=== PATIENT | male | born 1940 | race Caucasian/White ===

== ENCOUNTER 2017-08-04 14:25 | Emergency (ER) | payer OTHER, MEDICARE ==
[2017-08-04] MEDS ORDERED: LIDOCAINE 1% 20 ML MDV ONE (15:14)
--- NOTE | 2017-08-04 15:44 | EDPHYS ---
Physician Documentation [facility] Name: Forrest Collins Age: 77 yrs Sex: Male : 1940 Arrival Date: 08/04/2017 Time: 14:29 Bed 26 Private MD: Gato Farah ED Physician Jeff Heredia HPI: 08/04 16:00 This 77 yrs old Male presents to ER via Ambulatory with complaints of pm1 Laceration To Arm. 16:00 The patient has a laceration related to: working, occurred at work, and there are no pm1 complicating factors. The laceration(s) is(are) located on the dorsal aspect of left forearm. Onset: The symptoms/episode began/occurred 1 hour(s) ago. Associated signs and symptoms: Pertinent negatives: deformity, heavy bleeding, numbness distal to injury, suspected foreign body. Patient was working with some flashing and it cut his left forearm. patient with recent tetanus immunization < 5 years old. Historical: - Allergies: 14:41 NKA; iw - Home Meds: 14:41 None [Active]; iw - PMHx: 14:41 None; iw - PSHx: 14:41 Hernia repair; iw - Immunization history:: Adult Immunizations Last tetanus immunization: up to date. - Social history:: Smoking status: Patient/guardian denies using tobacco. ROS: 16:00 Constitutional: Negative for fever, chills, and weight loss, Eyes: Negative for injury, pm1 pain, redness, and discharge, ENT: Negative for injury, pain, and discharge, Neck: Negative for injury, pain, and swelling, Cardiovascular: Negative for chest pain, palpitations, and edema, Respiratory: Negative for shortness of breath, cough, wheezing, and pleuritic chest pain, Abdomen/GI: Negative for abdominal pain, nausea, vomiting, diarrhea, and constipation, Back: Negative for injury and pain, MS/Extremity: Negative for injury and deformity. 16:00 Neuro: Negative for headache, weakness, numbness, tingling, and seizure. 16:00 Skin: Positive for laceration(s), of the dorsal aspect of left forearm. Exam: 16:00 Constitutional: This is a well developed, well nourished patient who is awake, alert, pm1 and in no acute distress. Head/Face: Normocephalic, atraumatic. Chest/axilla: Normal chest wall appearance and motion. Nontender with no deformity. No lesions are appreciated. Cardiovascular: Regular rate and rhythm with a normal S1 and S2. No gallops, murmurs, or rubs. Normal PMI, no JVD. No pulse deficits. Respiratory: Lungs have equal breath sounds bilaterally, clear to auscultation and percussion. No rales, rhonchi or wheezes noted. No increased work of breathing, no retractions or nasal flaring. Back: No spinal tenderness. No costovertebral tenderness. Full range of motion. 16:00 Skin: injury, laceration(s), of the dorsal aspect of left forearm. Vital Signs: 14:41 Pulse 69; Resp 16 S; Temp 98.2; Pulse Ox 97% on R/A; Weight 90.26 kg; Height 6 ft. iw (182.88 cm); Pain 0/10; 16:18 BP 135 / 82; Pulse 67; Resp 18; Pulse Ox 100% ; tl3 14:41 Body Mass Index 26.99 (90.26 kg, 182.88 cm) iw Laceration: 15:46 Wound Repair of 3cm ( 1.2in ) subcutaneous laceration to dorsal aspect of left forearm. pm1 Linear shaped.. Distal neuro/vascular/tendon intact. Anesthesia: Local anesthetic administered with 2 mls of 1% lidocaine. Wound prep: Extensive cleansing by me, Wound irrigation by me, Wound explored extensively, Copious irrigation. Skin closed with 5 4-0 Prolene using simple sutures and sterile technique. Dressed with Bacitracin, 4x4's. Patient tolerated well. MDM: 14:36 Patient medically screened. pm1 15:42 Data reviewed: vital signs. Data interpreted: Pulse oximetry: on room air is 97 %. pm1 Interpretation: normal. Counseling: I had a detailed discussion with the patient and/or guardian regarding: the historical points, exam findings, and any diagnostic results supporting the discharge/admit diagnosis, the need for outpatient follow up, to return to the emergency department if symptoms worsen or persist or if there are any questions or concerns that arise at home. 08/04 14:50 Order name: Prolene, Sutures; Complete Time: 14:56 pm1 08/04 14:50 Order name: Dressing - Wound; Complete Time: 14:56 pm1 08/04 14:50 Order name: Gloves, Sterile; Complete Time: 14:56 pm1 08/04 14:50 Order name: Setup Suture Tray; Complete Time: 14:56 pm1 Administered Medications: No medications were administered Disposition: 08/05 10:24 Co-signature as Attending Physician, Jeff Heredia MD I agree with the assessment and sujey plan of care. Disposition: 08/04/17 15:44 Discharged to Home. Impression: Laceration without foreign body of left forearm. - Condition is Stable. - Discharge Instructions: Laceration Care, Adult. - Prescriptions for Keflex 500 mg Oral Capsule - take 1 capsule by ORAL route every 12 hours for 10 days; 20 capsule. - Medication Reconciliation Form, Thank You Letter, Antibiotic Education form. - Follow up: Emergency Department; When: 2 - 3 days; Reason: Recheck today's complaints, Continuance of care, Re-evaluation by your physician. Follow up: Gato Farah MD; When: 7 - 10 days; Reason: Wound Recheck, Recheck today's complaints, Continuance of care, Staple/Suture removal, Re-evaluation by your physician. - Problem is new. - Symptoms have improved. Signatures: Jeff Heredia MD MD cha Williams, Irene, RN Lance Zee NP [employer]ESPERSON [employer] pm1 Violetta Blackwell, JOANA RN tl3
--- NOTE | 2017-08-04 15:44 | ER ---
Nurse's Notes [facility] Name: Forrest Collins Age: 77 yrs Sex: Male : 1940 Arrival Date: 08/04/2017 Time: 14:29 Bed 26 Private MD: Gato Farah Diagnosis: Laceration without foreign body of left forearm Presentation: 08/04 14:37 Presenting complaint: Patient states: was moving sheet iron and got caught on LFA, has iw small laceration to LFA, dressed and not bleeding at this time. Transition of care: patient was not received from another setting of care. Complicating Factors: There are no complicating factors for this patient. Onset of symptoms was August 04, 2017. Care prior to arrival: Bleeding of injury controlled. 14:37 Method Of Arrival: Ambulatory iw 14:37 Acuity: TIAGO 4 iw Historical: - Allergies: 14:41 NKA; iw - Home Meds: 14:41 None [Active]; iw - PMHx: 14:41 None; iw - PSHx: 14:41 Hernia repair; iw - Immunization history:: Adult Immunizations Last tetanus immunization: up to date. - Social history:: Smoking status: Patient/guardian denies using tobacco. Screenin:47 Abuse screen: Denies threats or abuse. Nutritional screening: No deficits noted. tl3 Tuberculosis screening: No symptoms or risk factors identified. Fall Risk None identified. Assessment: 14:47 General: Appears in no apparent distress. comfortable, slender, well groomed, well tl3 developed, well nourished, Behavior is calm, cooperative, appropriate for age. Pain: Complains of pain in dorsal aspect of left forearm. Neuro: Level of Consciousness is awake, alert, obeys commands, confused, Oriented to person, place, time, situation, Appropriate for age. Cardiovascular: Reports None Heart tones S1 S2 present Capillary refill < 3 seconds in bilateral fingers. Respiratory: Airway is patent Trachea midline Respiratory effort is even, unlabored, Respiratory pattern is regular, symmetrical, Breath sounds are clear bilaterally. GI: No signs and/or symptoms were reported involving the gastrointestinal system. : No signs and/or symptoms were reported regarding the genitourinary system. EENT: No signs and/or symptoms were reported regarding the EENT system. Derm: Skin is fragile, Bruising that is dark purple, on multiple sites. Musculoskeletal: No deficits noted. Injury Description: Laceration sustained to dorsal aspect of left forearm is clean, 0.5 to 2.5 cm long, not bleeding. 15:25 Reassessment: Patient appears in no apparent distress at this time. No changes from tl3 previously documented assessment. Patient and/or family updated on plan of care and expected duration. Pain level reassessed. Patient is alert, oriented x 3, equal unlabored respirations, skin warm/dry/pink. kathryn at bedside suturing. 16:18 Reassessment: Patient appears in no apparent distress at this time. No changes from tl3 previously documented assessment. Patient and/or family updated on plan of care and expected duration. Pain level reassessed. Patient is alert, oriented x 3, equal unlabored respirations, skin warm/dry/pink. wound dressed and discharge papers signed. Vital Signs: 14:41 Pulse 69; Resp 16 S; Temp 98.2; Pulse Ox 97% on R/A; Weight 90.26 kg; Height 6 ft. iw (182.88 cm); Pain 0/10; 16:18 BP 135 / 82; Pulse 67; Resp 18; Pulse Ox 100% ; tl3 14:41 Body Mass Index 26.99 (90.26 kg, 182.88 cm) iw ED Course: 14:29 Patient arrived in ED. mr 14:29 Gato Farah MD is Private Physician. mr 14:36 Kathryn Nicholson NP is PHCP. pm1 14:36 Jeff Heredia MD is Attending Physician. pm1 14:40 Triage completed. iw 14:41 Arm band placed on. iw 14:47 Violetta Blackwell, JOANA is Primary Nurse. tl3 14:47 Patient has correct armband on for positive identification. pt sitting in chair. tl3 14:47 No provider procedures requiring assistance completed. tl3 15:43 Gato Farah MD is Referral Physician. pm1 16:18 Patient did not have IV access during this emergency room visit. tl3 Administered Medications: No medications were administered Outcome: 15:44 Discharge ordered by . pm1 16:18 Discharged to home ambulatory. tl3 16:18 Condition: good 16:18 Discharge instructions given to patient, Instructed on discharge instructions, follow up and referral plans. medication usage, Demonstrated understanding of instructions, follow-up care, medications, wound care, Prescriptions given X 1. 16:19 Patient left the ED. tl3 Signatures: Antonieta Galaviz Irene, RN RN iw Kathryn Nicholson, [employer]IRED TEACHER pm1 Violetta Blackwell RN RN tl3
== END 2017-08-04 16:19 | disposition home or self-care (01) ==
LOC: ER 14:25
PROC: 0JQH0ZZ Repair Left Lower Arm Subcutaneous Tissue and Fascia, Open Approach (ICD-10-PCS; principal; 2017-08-04)
DX: S51.812A Laceration without foreign body of left forearm, initial encounter (principal); W26.8XXA Contact with other sharp object(s), not elsewhere classified, initial encounter; Y93.89 Activity, other specified; Y92.89 Other specified places as the place of occurrence of the external cause; Y99.0 Civilian activity done for income or pay
CPT/HCPCS: 99282

== ENCOUNTER 2017-12-26 07:28 | Day surgery (SDC) | payer OTHER, MEDICARE ==
[2017-12-26] MEDS ORDERED: PHENYLEPHRINE 10% OPTH 5ML OPTH ONE ×3 (07:40→07:50)
[2017-12-26] MEDS ORDERED: TETRACAINE HCL 0.5% 2ML OPTH ONE (07:40)
[2017-12-26] MEDS ORDERED: BUPIVACAINE 0.25% PF 10 ML VIAL ONE (07:40)
[2017-12-26] MEDS ORDERED: CYCLOPENTOLATE 1% OPTH 2 ML ONE (07:40)
[2017-12-26] MEDS ORDERED: CYCLOPENTOLATE 1% OPTH 2 ML OPTH ONE ×3 (07:40→07:50)
[2017-12-26] MEDS ORDERED: PHENYLEPHRINE 10% OPTH 5ML ONE (07:41)
[2017-12-26] MEDS ORDERED: NA CHLORIDE 0.9% 500 ML ONE (07:41)
[2017-12-26] MEDS ORDERED: LIDOCAINE 1% MPF 5 ML VIAL ONE (07:42)
[2017-12-26] MEDS ORDERED: DUOVISC 1 KIT OPTH ONE (08:05)
[2017-12-26] MEDS ORDERED: NS 0.9% VIAL 10 ML ONE (08:05)
[2017-12-26] MEDS ORDERED: EPINEPHRINE/PF 1 MG/ML AMP ONE (08:05)
[2017-12-26] MEDS ORDERED: BALANCED SALT IRRIG PLAIN 500 ML BTL IRR ONE (08:05)
[2017-12-26] MEDS ORDERED: MOXIFLOXACIN HCL 10 DROPS/ML **OR USE OPTH ONE (08:06)
[2017-12-26] MEDS ORDERED: LIDOCAINE 1% MPF 2 ML AMPULE ONE (08:06)
[2017-12-26] MEDS ORDERED: LIDOCAINE 2% INJ, MPF 2 ML 0 ML ONE (08:15)
[2017-12-26] MEDS ORDERED: LIDOCAINE HCL/PF 3.5% OPTH GEL ONE (08:18)
[2017-12-26] MEDS ORDERED: LIDOCAINE HCL/PF 3.5% OPTH GEL OPTH ONE (08:20)
[2017-12-26] MEDS ORDERED: FENTANYL CITR 100 MCG/2 ML ONE (08:44)
[2017-12-26] MEDS ORDERED: MIDAZOLAM HCL 2 MG/2 ML INJ ONE (08:44)
--- NOTE | 2017-12-26 09:57 | P.BOP ---
Preoperative diagnosis: Nuclear sclerotic cataract and regular astigmatism OD Postoperative diagnosis: Same Primary procedure: Phacoemulsification with IOL OD and limbal relaxing incision OD Estimated blood loss: None Anesthesia: Local (Topical with anesthesia for cataract surgery) Complications: None Implants: ZCB00 +22.0 Transferred to: Other (Day surgery) Condition: Good
--- NOTE | 2017-12-26 21:19 | OP ---
Date of Procedure: 12/26/2017 Surgeon: Carolina Figueroa MD Anesthesiologist: 1. Kaur Hua CRNA. 2. Kevin Hdz M.D. Preoperative Diagnosis: Nuclear sclerotic cataract, right eye; posterior subcapsular cataract, right eye. Operation Performed: Phacoemulsification with intraocular lens implant, right eye. Anesthesia: Per cataract surgery. Complications: None. Description Of Procedure: In the operating room the patient was prepped and draped in the usual sterile fashion for ophthalmic surgery. A lid speculum was placed in the right eye. Two paracentesis sites were made superiorly and inferiorly in the limbal cornea. Viscoat was placed in the anterior chamber and a crescent blade was used to make a corneal groove and tunnel, and a keratome was used to enter the anterior chamber. Provisc was placed in the anterior chamber and a 360 degree capsulotomy was performed with a cystitome. The lens was hydrodissected with BSS and rotated freely. The lens was removed with a stop and chop technique. 9.01 phaco CDE was used to remove the lens. Residual cortex was removed with the irrigation and aspiration. Provisc was placed in the capsular bag. A ZCB00 +22.0 lens was placed in the capsular bag without complications. Irrigation and aspiration was used to remove residual viscoelastic. The paracentesis sites were hydrated with BSS. The wound and paracentesis sites were inspected and found to be watertight. Vigamox 0.07 cc was placed intracamerally at the end of the procedure. The eye was irrigated with balanced salt solution. The eye was patched with a soft cotton patch and Roberts metal shield. The patient was returned to day surgery in good condition. Comments: A limbal relaxing incision was created at 19 degrees, a 35-degree arc was created with a 600 micron blade. Akten was placed in the eye in Day surgery and irrigated out the eye with BSS in the OR. Preservative-free 1% lidocaine was placed in the anterior chamber prior to Viscoat. During phacoemulsification, the conjunctiva began ballooning and was incised with Reyes scissors. This was reapproximated with cautery at the end of the procedure. Trace residual PSC remained at the end of the procedure. Discharge Instructions: Mr. Collins is discharged to home in good condition and is to follow up with Dr. Figueroa in the morning. ROGER/MARIAN Voice ID: [id number] Report ID: [id number] MOISES
== END 2017-12-26 10:24 | disposition home or self-care (01) ==
LOC: OR 07:28
PROVIDERS: ATTEND Ophthalmology Retina Specialist
PROC: 089 Eye, Drainage (ICD-10-PCS; 2017-12-26)
PROC: 08RJ3JZ Replacement of Right Lens with Synthetic Substitute, Percutaneous Approach (ICD-10-PCS; principal; 2017-12-26 09:10)
DX: H25.11 Age-related nuclear cataract, right eye (principal); H25.041 Posterior subcapsular polar age-related cataract, right eye; H52.221 Regular astigmatism, right eye; E78.5 Hyperlipidemia, unspecified; Z87.891 Personal history of nicotine dependence
CPT/HCPCS: 66984; 66999; J0171; J2001; J2250; J3010; J3490

== ENCOUNTER 2019-05-10 12:16 | Emergency (ER) | payer MEDICARE, OTHER ==
--- OUTSIDE RECORDS SUMMARY | 2019-05-10 12:17 | XMS REPORT ---
:1940 [facility] Address [address] [place] [address] Care Team Providers Name Role Phone Unavailable Unavailable Unavailable Payers Payer Name Policy Type Policy Number Effective Date Expiration Date Problems This patient has no known problems. Allergies, Adverse Reactions, Alerts Allergy Allergy Status Severity Reaction(s) Onset Inactive Treating Comments Name Type Date Date Clinician No Known DA Active U 2019-04 Allergies - 00:00:0 0 No Known DA Active U 2019-03 Allergies - 00:00:0 0 Medications This patient has no known medications. Results Test Description Test Time Test Comments Text Results Atomic Results Result Comments HGB HCT 2019-04-28 07:36:00 Test Item Value Reference Range Comments HEMOGLOBIN (test code=HGB) 12.5 g/dL 12-16 HEMATOCRIT (test code=HCT) 35.7 % 37-47 AB HIV 1 21:54:00 Test Item Value Reference Range Comments AB HIV 1 2 (test NONREACTIVE NONREACTIVE Done by Siemens Zappliaur 4th code=[id number]) Gen HIV Ag/Ab Combo Screen AB HIV 21:54:00 Test Item Value Reference Range Comments AB HIV 1 (test code=HIV1AB) NONREACTIVE NONREACTIVE Done by Siemens Centaur 4th Gen HIV Ag/Ab Combo Screen PROTHROMBIN [id number] 17:03:00 Test Item Value Reference Range Comments PROTHROMBIN TIME PATIENT 10.9 secs 10.1-12.5 (test code=PTP) INTERNATIONAL NORMAL RATIO 0.97 <2.0 RECOMMENDED THERAPEUTIC RANGE (test code=INR) FOR ORAL ANTICOAGULANTTREATMENT: CONDITION INRProphylaxis of venous thrombosis in 2.0 - 3.0 high-risk medical or surgical patientsTreatment of venous thrombosis 2.0 - 3.0Prevention of embolism 2.0 - 3.0Prevention of recurrent embolism, or 3.0 - 4.5 patients with mechanical prosthetic intravascular valves IS PATIENT ON ANTICOAGULANTS ? NHas Lab been notified if Patient is on Heparin Drip? NOIf Yes, orderCBC, OCCULT BLOOD, PT every other day NTHROMBOPLASTIN TIME [id number] 17:03:00 Test Item Value Reference Range Comments PTT ACTIVATED (test code=APTT) 30.6 secs 24.9-37.0 IS PATIENT ON ANTICOAGULANTS ? NHas Lab been notified if Patient is on Heparin Drip? NOIf Yes, orderCBC, OCCULT BLOOD, PT every other day NCOMPREHENSIVE METABOLIC [id number] 17:02:00 Test Item Value Reference Range Comments SODIUM (test code=NA) 140 mmol/L 136-145 POTASSIUM (test code=K) 4.0 mmol/L 3.5-5.1 CHLORIDE (test code=CL) 101.0 mmol/L 98-107 CARBON DIOXIDE (test code=CO2) 26.4 mmol/L 21-32 GLUCOSE (test code=GLU) 100 mg/dL 70-110 BLOOD UREA NITROGEN (test 21 mg/dL 7-18 code=BUN) GLOMERULAR FILTRATION RATE 79.0 >60 Unit of measure: (test code=GFR) mL/min/1.73 [id number] Range:Healthy Adults >90 mL/min/1.73 m2 For Chronic Kidney Disease: Stage II Mild Decrease in GFR 60-90 Stage III Moderate Decrease in GFR 30-59 Stage IV Severe Decrease in GFR 15-29 Stage V Kidney Failure <15 CREATININE (test code=CREAT) 0.92 mg/dL 0.55-1.30 TOTAL PROTEIN (test code=PROT) 7.4 g/dL 6.4-8.2 ALBUMIN (test code=ALB) 4.1 g/dL 3.4-5.0 GLOBULIN (test code=GLOB) 3.3 g/dL 2.2-4.2 ALBUMIN/GLOBULIN RATIO (test 1.2 0.7-2.0 code=A/G) CALCIUM (test code=CA) 9.2 mg/dL 8.2-10.1 BILIRUBIN TOTAL (test 0.82 mg/dL 0.2-1.00 code=BILT) SGOT/AST (test code=AST) 25.0 U/L 15-37 SGPT/ALT (test code=ALT) 31.0 U/L 12-78 Please note new normal range. ALKALINE PHOSPHATASE TOTAL 67 U/L 46-116 (test code=ALKP) CBC W/AUTO [id number] 16:21:00 Test Item Value Reference Range Comments WHITE BLOOD CELL (test code=WBC) 4.6 K/mm3 5.7-10.5 RED BLOOD CELL (test code=RBC) 4.65 M/mm3 4.2-5.4 HEMOGLOBIN (test code=HGB) 14.9 g/dL 12-16 HEMATOCRIT (test code=HCT) 42.0 % 37-47 MEAN CELL VOLUME (test code=MCV) 90 fL 80-98 MEAN CELL HGB (test code=MCH) 32.0 pg 27-34 MEAN CELL HGB CONCENTRATION (test code=MCHC) 35.5 g/dL 30.8-34.1 RED CELL DISTRIBUTION WIDTH (test code=RDW) 13.3 % 11-16 PLT (test code=PLT) 165 K/mm3 130-400 MEAN PLATELET VOLUME (test code=MPV) 12.0 fL 8.9-12.1 NEUTROPHIL % (test code=NT%) 64.3 % 45-70 LYMPHOCYTE % (test code=LY%) 25.1 % 20-40 MONOCYTE % (test code=MO%) 7.8 % 3-10 EOSINOPHIL % (test code=EO%) 1.5 % 1-5 BASOPHIL % (test code=BA%) 0.9 % 0.0-1.1 NEUTROPHIL # (test code=NT#) 2.95 K/mm3 2.00-7.50 LYMPHOCYTE # (test code=LY#) 1.15 K/mm3 1.50-4.00 MONOCYTE # (test code=MO#) 0.36 K/mm3 0.2-0.8 EOSINOPHIL # (test code=EO#) 0.07 K/mm3 0.04-0.4 BASOPHIL # (test code=BA#) 0.04 K/mm3 0.02-0.10 MANUAL DIFF REQUIRED (test code=MDIFF) NO MANUAL DIFF NUCLEATED RED BLOOD CELL (test code=NRBC) 0 % 0-0
[2019-05-10 13:04] LABS: Urine Blood NEGATIVE (NEG); Urine Glucose NEGATIVE (NEG); Urine Protein NEGATIVE (NEG); Urine pH 5.5 (5.0-7.0)
--- NOTE | 2019-05-10 13:11 | EDPHYS ---
Physician Documentation [facility] Name: Forrest Collins Age: 79 yrs Sex: Male : 1940 Arrival Date: 05/10/2019 Time: 12:21 Bed 14 Private MD: Gato Farah ED Physician Jeff Heredia HPI: 05/10 13:05 This 79 yrs old Male presents to ER via Ambulatory with complaints of Urinary sujey Retention. 13:05 The patient presents with urinary symptoms, dysuria, frequency, hesitancy. Onset: The sujey symptoms/episode began/occurred 2 day(s) ago. Modifying factors: The symptoms are alleviated by nothing, the symptoms are aggravated by urinating. Associated signs and symptoms: The patient has no apparent associated signs or symptoms. Severity of symptoms: At their worst the symptoms were mild, moderate, in the emergency department the symptoms are unchanged. The patient is not sexually active. The patient has not experienced similar symptoms in the past. Historical: - Allergies: 12:43 NKA; sg - PMHx: 12:43 Hypertension; sg - PSHx: 12:43 Hernia repair; Right knee sx; cataract sx; sg - Immunization history:: Adult Immunizations unknown. - Social history:: Smoking status: Patient/guardian denies using tobacco. - Ebola Screening: : No symptoms or risks identified at this time. ROS: 13:07 Constitutional: Negative for fever, chills, and weight loss, Eyes: Negative for injury, sujey pain, redness, and discharge, ENT: Negative for injury, pain, and discharge, Neck: Negative for injury, pain, and swelling, Cardiovascular: Negative for chest pain, palpitations, and edema, Respiratory: Negative for shortness of breath, cough, wheezing, and pleuritic chest pain, Back: Negative for injury and pain, : Negative for injury, bleeding, discharge, and swelling, MS/Extremity: Negative for injury and deformity, Skin: Negative for injury, rash, and discoloration, Neuro: Negative for headache, weakness, numbness, tingling, and seizure, Psych: Negative for depression, anxiety, suicide ideation, homicidal ideation, and hallucinations, Allergy/Immunology: Negative for hives, rash, and allergies, Endocrine: Negative for neck swelling, polydipsia, polyuria, polyphagia, and marked weight changes, Hematologic/Lymphatic: Negative for swollen nodes, abnormal bleeding, and unusual bruising. 13:07 Abdomen/GI: Positive for abdominal pain, of the suprapubic area. Exam: 13:07 Constitutional: This is a well developed, well nourished patient who is awake, alert, sujey and in no acute distress. Head/Face: Normocephalic, atraumatic. Eyes: Pupils equal round and reactive to light, extra-ocular motions intact. Lids and lashes normal. Conjunctiva and sclera are non-icteric and not injected. Cornea within normal limits. Periorbital areas with no swelling, redness, or edema. ENT: Nares patent. No nasal discharge, no septal abnormalities noted. Tympanic membranes are normal and external auditory canals are clear. Oropharynx with no redness, swelling, or masses, exudates, or evidence of obstruction, uvula midline. Mucous membranes moist. Neck: Trachea midline, no thyromegaly or masses palpated, and no cervical lymphadenopathy. Supple, full range of motion without nuchal rigidity, or vertebral point tenderness. No Meningismus. Chest/axilla: Normal chest wall appearance and motion. Nontender with no deformity. No lesions are appreciated. Cardiovascular: Regular rate and rhythm with a normal S1 and S2. No gallops, murmurs, or rubs. Normal PMI, no JVD. No pulse deficits. Respiratory: Lungs have equal breath sounds bilaterally, clear to auscultation and percussion. No rales, rhonchi or wheezes noted. No increased work of breathing, no retractions or nasal flaring. Abdomen/GI: Soft, non-tender, with normal bowel sounds. No distension or tympany. No guarding or rebound. No evidence of tenderness throughout. Back: No spinal tenderness. No costovertebral tenderness. Full range of motion. Skin: Warm, dry with normal turgor. Normal color with no rashes, no lesions, and no evidence of cellulitis. MS/ Extremity: Pulses equal, no cyanosis. Neurovascular intact. Full, normal range of motion. Neuro: Awake and alert, GCS 15, oriented to person, place, time, and situation. Cranial nerves II-XII grossly intact. Motor strength 5/5 in all extremities. Sensory grossly intact. Cerebellar exam normal. Normal gait. Psych: Awake, alert, with orientation to person, place and time. Behavior, mood, and affect are within normal limits. 13:07 : CVA tenderness, is absent, Male external genitalia: normal, Bladder: distension, that is mild, tenderness, that is mild. Vital Signs: 12:41 BP 141 / 87; Pulse 107; Resp 18; Temp 97.7; Pulse Ox 100% on R/A; Weight 88.45 kg (R); sg Height 5 ft. 11 in. (180.34 cm); 14:20 BP 131 / 72; Pulse 87; Resp 18; Temp 98.0; Pulse Ox 99% on R/A; ph 12:41 Body Mass Index 27.20 (88.45 kg, 180.34 cm) sg MDM: 12:54 Patient medically screened. [facility] 13:07 Data reviewed: vital signs, nurses notes, lab test result(s), urinalysis. [facility] 05/10 12:56 Order name: Urine Dipstick--Ancillary (enter results); Complete Time: 13:06 05/10 13:04 Order name: Urine Culture [facility] 05/10 13:04 Order name: Bladder Scanner; Complete Time: 13:19 [facility] 05/10 13:07 Order name: Nam; Complete Time: 14:21 [facility] 05/10 13:07 Order name: Nam Leg Bag; Complete Time: 14:21 [facility] Administered Medications: 14:00 Drug: Flomax 0.4 mg Route: PO; ph 14:21 Follow up: Response: No adverse reaction ph 14:00 Drug: Cipro 500 mg Route: PO; ph 14:22 Follow up: Response: No adverse reaction ph 14:10 Drug: Viscous Lidocaine Liquid (4 %) 5 ml Route: Mucous Membrane; ph 14:23 Follow up: Response: No adverse reaction ph Disposition: 05/10/19 13:10 Discharged to Home. Impression: Retention of urine. - Condition is Stable. - Discharge Instructions: Nam Catheter Care, Adult, Acute Urinary Retention, Male, [id number], Nam Catheter Care, Adult, [id number]. - Prescriptions for Cipro 250 mg Oral Tablet - take 1 tablet by ORAL route every 12 hours; 14 tablet. Flomax 0.4 mg Oral Capsule, Sust. Release 24 hr - take 1 capsule by ORAL route once daily 1/2 hour following the same meal each day; 30 capsule. - Medication Reconciliation Form, Thank You Letter, Antibiotic Education, Prescription Opioid Use form. - Follow up: Gato Farah MD; When: 2 - 3 days; Reason: Recheck today's complaints, Continuance of care, Re-evaluation by your physician. Follow up: Mariano James MD; When: 2 - 3 days; Reason: Recheck today's complaints, Re-evaluation by your physician. - Problem is new. - Symptoms have improved. Signatures: Dispatcher [employer] EDMS Anson Monterroso RN RN Jeff Pineda MD MD cha Hall, Patricia, RN RN ph Corrections: (The following items were deleted from the chart) 14:24 13:10 05/10/2019 13:10 Discharged to Home. Impression: Retention of urine. Condition is ph Stable. Forms are Medication Reconciliation Form, Thank You Letter, Antibiotic Education, Prescription Opioid Use. Follow up: Gato Farah; When: 2 - 3 days; Reason: Recheck today's complaints, Continuance of care, Re-evaluation by your physician. Follow up: Mariano James; When: 2 - 3 days; Reason: Recheck today's complaints, Re-evaluation by your physician. Problem is new. Symptoms have improved. sujey
--- NOTE | 2019-05-10 13:11 | ER ---
Nurse's Notes [facility] Name: Forrest Collins Age: 79 yrs Sex: Male : 1940 Arrival Date: 05/10/2019 Time: 12:21 Bed 14 Private MD: Gato Farah Diagnosis: Retention of urine Presentation: 05/10 12:44 Presenting complaint: Patient states: pt reports having difficulty voiding for 1 day, sg pt states he is post op right knee replacement and has medications that have a diuretic effect and is concerned because he is not emptying his bladder that it could be a problem. Transition of care: patient was not received from another setting of care. Onset of symptoms was May 10, 2019. Risk Assessment: Do you want to hurt yourself or someone else? Patient reports no desire to harm self or others. Initial Sepsis Screen: Does the patient meet any 2 criteria? HR > 90 bpm. Does the patient have a suspected source of infection? No. Patient's initial sepsis screen is negative. Care prior to arrival: None. 12:44 Method Of Arrival: Ambulatory sg 12:44 Acuity: TIAGO 3 sg Historical: - Allergies: 12:43 NKA; sg - PMHx: 12:43 Hypertension; sg - PSHx: 12:43 Hernia repair; Right knee sx; cataract sx; sg - Immunization history:: Adult Immunizations unknown. - Social history:: Smoking status: Patient/guardian denies using tobacco. - Ebola Screening: : No symptoms or risks identified at this time. Screenin:30 Abuse screen: Denies threats or abuse. Denies injuries from another. Nutritional ph screening: No deficits noted. Tuberculosis screening: No symptoms or risk factors identified. Fall Risk None identified. Assessment: 13:30 General: Appears in no apparent distress. uncomfortable, slender, well groomed, ph Behavior is calm, cooperative, appropriate for age. Pain: Complains of pain in suprapubic area. Neuro: Level of Consciousness is awake, alert, obeys commands, Oriented to person, place, time, situation. Cardiovascular: Capillary refill < 3 seconds in bilateral fingers Patient's skin is warm and dry. Respiratory: Airway is patent Respiratory effort is even, unlabored. : Reports inability to void, since this morning. Derm: Skin is intact, is healthy with good turgor, Skin is pink, warm \T\ dry. Musculoskeletal: Circulation, motion, and sensation intact. Range of motion: intact in all extremities. 14:15 Reassessment: Patient appears in no apparent distress at this time. Patient and/or ph family updated on plan of care and expected duration. Pain level reassessed. Patient is alert, oriented x 3, equal unlabored respirations, skin warm/dry/pink. Nam carheter in place, 950 mL urine output noted, pt reports relief in suprapubic pressure, leg bag placed to L leg. Vital Signs: 12:41 BP 141 / 87; Pulse 107; Resp 18; Temp 97.7; Pulse Ox 100% on R/A; Weight 88.45 kg (R); sg Height 5 ft. 11 in. (180.34 cm); 14:20 BP 131 / 72; Pulse 87; Resp 18; Temp 98.0; Pulse Ox 99% on R/A; ph 12:41 Body Mass Index 27.20 (88.45 kg, 180.34 cm) ED Course: 12:21 Patient arrived in ED. am2 12:21 Gato Farah MD is Private Physician. am2 12:43 Arm band placed on. 12:46 Triage completed. 12:54 Jeff Heredia MD is Attending Physician. [facility] 12:58 Patient has correct armband on for positive identification. Bed in low position. Call [facility] light in reach. Side rails up X 1. Adult w/ patient. Pulse ox on. NIBP on. 12:58 Bladder scan completed. 342. 5 12:59 Urine Dipstick--Ancillary (enter results) Sent. [facility] 13:10 Gato Farah MD is Referral Physician. sujey 13:10 Mariano James MD is Referral Physician. sujey 13:23 Kadie Ambrosio, JOANA is Primary Nurse. ph 14:00 Nam cath inserted, using sterile technique, 16 Fr., by sc, balloon inflated, to ph gravity drainage, returned clear yellow urine. Patient tolerated poorly. 900 mL drained from bladder. 14:20 No provider procedures requiring assistance completed. Patient did not have IV access ph during this emergency room visit. Administered Medications: 14:00 Drug: Flomax 0.4 mg Route: PO; ph 14:21 Follow up: Response: No adverse reaction ph 14:00 Drug: Cipro 500 mg Route: PO; ph 14:22 Follow up: Response: No adverse reaction ph 14:10 Drug: Viscous Lidocaine Liquid (4 %) 5 ml Route: Mucous Membrane; ph 14:23 Follow up: Response: No adverse reaction ph Outcome: 13:10 Discharge ordered by MD. rm 14:24 Patient left the ED. ph 14:24 Discharged to home ambulatory, with significant other. ph 14:24 Condition: improved 14:24 Discharge instructions given to patient, significant other, Instructed on discharge instructions, follow up and referral plans. medication usage, Nam care Demonstrated understanding of instructions, follow-up care, medications, Prescriptions given X 2. Signatures: Anson Monterroso RN RN sg Anderson, Corey, MD MD cha Hall, Patricia, RN RN ph Martinez, Maria [facility] Hortensia [facility] Corrections: (The following items were deleted from the chart) 12:46 12:44 Initial Sepsis Screen: Does the patient meet any 2 criteria? HR > 90 bpm. Does sg the patient have a suspected source of infection? Yes: Dysuria/Frequency/Urgency/UTI sg
[2019-05-10] MEDS ORDERED: TAMSULOSIN 0.4 MG SR CAP ONE (13:39)
[2019-05-10] MEDS ORDERED: LIDOCAINE VISCOUS 2% SOLN 15 ML UDC ONE ×2 (13:39→13:51)
[2019-05-10] MEDS ORDERED: CIPROFLOXACIN HCL 500 MG TAB ONE (13:39)
[2019-05-10 14:50] VITALS: BP 141/87; TEMP 97.7; O2SAT 100
== END 2019-05-10 14:24 | disposition home or self-care (01) ==
LOC: ER 12:16
DX: R33.9 Retention of urine, unspecified (principal); I10 Essential (primary) hypertension
CPT/HCPCS: 51702; 81003; 87086; 87088; 99284

== ENCOUNTER 2019-05-12 11:20 | Emergency (ER) | payer OTHER ==
--- OUTSIDE RECORDS SUMMARY | 2019-05-12 11:23 | XMS REPORT ---
:1940 [facility] Address [address] [place] [address] Care Team Providers Name Role Phone Unavailable [...] (test code=HCT) 35.7 % 37-47 AB HIV 21:54:00 Test Item Value Reference Range Comments AB HIV 1 (test code=HIV1AB) NONREACTIVE NONREACTIVE Done by [email or web address] 4th Gen HIV Ag/Ab Combo Screen AB HIV 1 21:54:00 Test Item Value Reference Range Comments AB HIV 1 2 (test NONREACTIVE NONREACTIVE Done by [email or web address] 4th code=WOX60JL) Gen HIV Ag/Ab Combo Screen PROTHROMBIN [id number] 17:03:00 Test Item Value Reference Range Comments [...] BLOOD, PT every other day NTHROMBOPLASTIN TIME [id number] 17:03:00 Test Item Value Reference Range Comments PTT ACTIVATED (test code=APTT) 30.6 secs 24.9-37.0 IS PATIENT ON ANTICOAGULANTS ? NHas Lab been notified if Patient is on Heparin Drip? NOIf Yes, orderCBC, OCCULT BLOOD, PT every other day NCOMPREHENSIVE METABOLIC [id number] 17:02:00 Test Item Value Reference Range Comments SODIUM (test code=NA) 140 mmol/L 136-145 POTASSIUM (test code=K) 4.0 mmol/L 3.5-5.1 CHLORIDE (test code=CL) 101.0 mmol/L 98-107 CARBON DIOXIDE (test code=CO2) 26.4 mmol/L 21-32 GLUCOSE (test code=GLU) 100 mg/dL 70-110 BLOOD UREA NITROGEN (test 21 mg/dL 7-18 code=BUN) GLOMERULAR FILTRATION RATE 79.0 >60 Unit of measure: (test code=GFR) mL/min/1.73 [id number] Range:Healthy Adults >90 mL/min/1.73 m2 For Chronic [...] 67 U/L 46-116 (test code=ALKP) CBC W/AUTO [id number] 16:21:00 Test Item Value Reference Range Comments [...]
--- NOTE | 2019-05-12 11:47 | ER ---
Nurse's Notes [facility] Name: Forrest Collins Age: 79 yrs Sex: Male : 1940 Arrival Date: 05/12/2019 Time: : Bed 14 Private MD: Gato Farah Diagnosis: Urinary retention Presentation: 05/12 11:25 Presenting complaint: Patient states: needs urinary catheter removed that was placed sv here. Transition of care: patient was not received from another setting of care. Onset of symptoms was May 12, 2019. Care prior to arrival: None. 11:25 Method Of Arrival: Ambulatory sv 11:25 Acuity: TIAGO 4 sv Historical: - Allergies: : NKA; sv - PMHx: 11: Hypertension; sv - PSHx: 11: Hernia repair; Right knee sx; cataract sx; sv - Family history:: not pertinent. - Hospitalizations: : No recent hospitalization is reported. Vital Signs: 11: BP 131 / 79; Pulse 98; Resp 16; Pulse Ox 98% ; Weight 87.54 kg; Height 5 ft. 11 in. sv (180.34 cm); 11: Body Mass Index 26.92 (87.54 kg, 180.34 cm) sv ED Course: :23 Patient arrived in ED. as 11:23 Gato Farah MD is Private Physician. as 11: Triage completed. sv 11:27 Kamlesh Godwin MD is Attending Physician. rn 11:27 Anson Monterroso RN is Primary Nurse. sg 11:27 Arm band placed on. sv 11:46 Mariano James MD is Referral Physician. rn Administered Medications: No medications were administered Outcome: 11:47 Discharge ordered by MD. rn 11:52 Medical screen evaluation completed per provider. Patient declined treatment. sg 11:52 Condition: good 11:52 Instructed on follow up and referral plans. 12:00 Patient left the ED. sg Signatures: Airam Vargas RN RN sv Anson Monterroso RN RN sg Rosemary Britt as Kamlesh Godwin MD MD rn
--- NOTE | 2019-05-12 11:47 | EDPHYS ---
Physician Documentation [facility] Name: Forrest Collins Age: 79 yrs Sex: Male : 1940 Arrival Date: 05/12/2019 Time: 11:23 Bed 14 Private MD: Gato Farah ED Physician Kamlesh Godwin HPI: 05/12 11:42 This 79 yrs old Male presents to ER via Ambulatory with complaints of needs rn olsen catheter pulled out. 11:42 The patient presents with urinary symptoms. Onset: The symptoms/episode began/occurred rn 2 day(s) ago. Modifying factors: The symptoms are alleviated by nothing, the symptoms are aggravated by nothing. Severity of symptoms: At their worst the symptoms were mild, in the emergency department the symptoms have improved. The patient has not experienced similar symptoms in the past. The patient has been recently seen at the [facility] Emergency Department. Reports seen here 2 days ago for urinary retention, had 800cc of urine in bladder when drained, no UTI, thought maybe from meds after surgery, told to return in 2 days here for removal. No fever, is flowing well, taking bactrim. . Historical: - Allergies: 11: NKA; sv - PMHx: 11:26 Hypertension; sv - PSHx: 11:26 Hernia repair; Right knee sx; cataract sx; sv - Family history:: not pertinent. - Hospitalizations: : No recent hospitalization is reported. ROS: 11:42 Constitutional: Negative for fever, chills, and weight loss, Abdomen/GI: Negative for rn abdominal pain, nausea, vomiting, diarrhea, and constipation, : Negative for injury, bleeding, discharge, and swelling. Exam: 11:42 Constitutional: This is a well developed, well nourished patient who is awake, alert, rn and in no acute distress. Ambulatory to room without difficulty. Abdomen/GI: soft, non-tender, non-distended Male : Olsen catheter in place and draining. Vital Signs: 11: BP 131 / 79; Pulse 98; Resp 16; Pulse Ox 98% ; Weight 87.54 kg; Height 5 ft. 11 in. sv (180.34 cm); 11: Body Mass Index 26.92 (87.54 kg, 180.34 cm) sv MDM: 11:27 Patient medically screened. rn 11:42 Differential diagnosis: urinary retention. Data reviewed: vital signs, nurses notes, rn old medical records, and as a result, I will discharge patient. Counseling: I had a detailed discussion with the patient and/or guardian regarding: the historical points, exam findings, and any diagnostic results supporting the discharge/admit diagnosis, the need for outpatient follow up, to return to the emergency department if symptoms worsen or persist or if there are any questions or concerns that arise at home. ED course: offered removal of catheter and voiding trial, but patient concerned about having to get olsen placed again and does not want to go through that again. Told him had decent chance of passing, but ultimately patient and family choose to go home, continue abx and flomax as has only been 2 days, and will f/u with Dr. James who he has seen before. Most likely combination of prostate at baseline and medication recently. . Administered Medications: No medications were administered Disposition: 05/12/19 11:47 Discharged to Home as Medical Screen. Impression: Urinary retention. - Condition is Stable. - Discharge Instructions: Olsen Catheter Care, Adult, Acute Urinary Retention, Male. - Medication Reconciliation Form, Thank You Letter, Antibiotic Education, Prescription Opioid Use form. - Follow up: Mariano James MD; When: 5 - 6 days; Reason: Recheck today's complaints, Continuance of care, Re-evaluation by your physician. - Problem is new. - Symptoms have improved. Signatures: Airam Vargas RN RN sv Gay, Steven, RN RN sg Nieto, Roman, MD MD internal sales engineer: (The following items were deleted from the chart) 12:00 11:47 05/12/2019 11:47 Discharged to Home as Medical Screen. Impression: Urinary sg retention. Condition is Stable. Forms are Medication Reconciliation Form, Thank You Letter, Antibiotic Education, Prescription Opioid Use. Follow up: Mariano James; When: 5 - 6 days; Reason: Recheck today's complaints, Continuance of care, Re-evaluation by your physician. Problem is new. Symptoms have improved. rn
[2019-05-12 12:23] VITALS: BP 131/79; O2SAT 98
== END 2019-05-12 12:00 | disposition home or self-care (01) ==
LOC: ER 11:20
DX: R33.9 Retention of urine, unspecified (principal); I10 Essential (primary) hypertension
CPT/HCPCS: 99281

== ENCOUNTER 2020-04-07 09:32 | Inpatient (IN) | payer OTHER ==
[2020-04-07] MEDS ORDERED: dexAMETHasone 10 MG/ML VIAL ONE (10:17)
[2020-04-07 10:50] LABS: Absolute Lymphocytes (CBC) 0.3 K/uL (0.7-4.9); Basophils % 0.2 % (0-1.3); Hematocrit 37.2 % (39.6-49.0); RBC Red Blood Cell Count 4.12 M/uL (4.33-5.43)
[2020-04-07 10:55] LABS: ALT/SGPT 103 U/L (12-78); AST/SGOT 93 U/L (15-37); Albumin 2.7 g/dL (3.4-5.0); Alkaline Phosphatase 74 U/L (45-117); BUN Blood Urea Nitrogen 21 mg/dL (7-18); Bicarbonate 29 mmol/L (21-32); Bilirubin Direct 0.2 mg/dL (0-0.2); Bilirubin Total 0.7 mg/dL (0.2-1.0); Ferritin 1582.9 ng/mL (26-388); Glucose Level 144 mg/dL (74-106); Lipase 250 U/L (73-393); Protein, Total 7.2 g/dL (6.4-8.2); Protime INR 1.06; Sodium Level 134 mmol/L (136-145); Troponin (Emerg Dept Use Only) < 0.02 ng/mL (0.0-0.045)
--- NOTE | 2020-04-07 11:04 | RAD REPORT ---
EXAM DESCRIPTION: RAD - Chest Single View - 04/07/2020 10:41 am CLINICAL HISTORY: COUGH Chest pain. COMPARISON: CHEST PA AND LAT 2 VIEW dated 11/26/2013 FINDINGS: Portable technique limits examination quality. Extensive bilateral pulmonary opacities are present most compatible with viral pneumonia. The heart i s normal in size. No displaced fractures. IMPRESSION: Extensive bilateral viral pneumonia pattern.
[2020-04-07 11:05] LABS: Potassium 2.9 mmol/L (3.5-5.1)
--- OUTSIDE RECORDS SUMMARY | 2020-04-07 11:31 | XMS REPORT | Continuity of Care Document ---
:[address] [facility] t Address [address] [place] [address] Dr. Aguilar. [address] [place] [address] Care Team Providers Name Role Phone Analy GARDUNO, H Attending Clinician Lab, Fam Pob I Attending Clinician Unavailable Payers Payer Name Policy Type Policy Number Effective Date Expiration Date S ource Problems This patient has no known problems. Allergies, Adverse Reactions, Alerts Allergy Allergy Status Severity Reaction(s) Onset Inactive Treating Comm ents Source Name Type Date Date Clinician No Known DA Active U 2018-05 [facility]27 [place] [facility] No Known DA Active U 2018-05 [facility] [place] Medications This patient has no known medications. Procedures This patient has no known procedures. Encounters Start End Encounter Admission Attending Care Care Encounter Source Date/Time Date/Time Type Type Clinicians Facility Department ID 2020-03-29 2020-03-29 Telephone Analy [facility] [id number] 00:00:00 00:00:00 [facility] [employer] [id number] Surgical [id number] Specialti [phone] es [address] 2020-03-26 2020-03-26 Laboratory Lab, [facility] [id number] 15:15:36 15:35:36 Only Fam Pob I Health [id number] [place] [id number] Professio [phone] [facility] [address] Results Test Description Test Time Test Comments Results Result Comments Source HGB HCT 2019-04-28 07:36:00 Test Item Value Reference Range Interpretation Comme nts HEMOGLOBIN (test code = HGB) 12.5 g/dL 12-16 N HEMATOCRIT (test code = HCT) 35.7 % 37-47 L AB HIV 21:54:00 Test Item Value Reference Range Interpretation Comments AB HIV 1 (test code NONREACTIVE NONREACTIVE Done by [employer] = HIV1AB) 4th Gen HIV Ag/ Ab Combo Screen AB HIV 1 21:54:00 Test Item Value Reference Range Interpretation Comments AB HIV 1 2 (test NONREACTIVE NONREACTIVE Done by [employer] code = [id number]) 4th Gen HIV Ag/Ab Combo Screen PROTHROMBIN [id number] 17:03:00 Test Item Value Reference Range Interpretation Comments PROTHROMBIN TIME 10.9 secs 10.1-12.5 N PATIENT (test code = PTP) INTERNATIONAL NORMAL 0.97 <2.0 RECOMME NDED THERAPEUTIC RATIO (test code = RANGE FOR ORAL INR) ANTICOAGULANTTR EATMENT: CONDI TION INRProphylaxis of venous thrombos is in 2.0 - 3.0 high-risk medic al or surgical patientsTreatme nt of venous thrombos is 2.0 - 3.0Prevention o f embolism 2.0 - 3.0Prevention o f recurrent embol ism, or 3.0 - 4. 5 patients with mechanical pros thetic intravascular v dao IS PATIENT ON ANTICOAGULANTS ? NHas Lab been notified if Patient is on Heparin Drip? NOIf Yes, orderCBC, OCCULT BLOOD, PT every other day NTHROMBOPLASTIN TIME [id number] 17:03:00 Test Item Value Reference Range Interpretation Comments PTT ACTIVATED (test code = APTT) 30.6 secs 24.9-37.0 N IS PATIENT ON ANTICOAGULANTS ? NHas Lab been notified if Patient is on Heparin Drip? NOIf Yes, orderCBC, OCCULT BLOOD, PT every other day NCOMPREHENSIVE METABOLIC [id number] 17:02:00 Test Item Value Reference Range Interpretation Comments SODIUM (test code = 140 mmol/L 136-145 N NA) POTASSIUM (test code = 4.0 mmol/L 3.5-5.1 N K) CHLORIDE (test code = 101.0 mmol/L 98-107 N CL) CARBON DIOXIDE (test 26.4 mmol/L 21-32 N code = CO2) GLUCOSE (test code = 100 mg/dL 70-110 N GLU) BLOOD UREA NITROGEN 21 mg/dL 7-18 H (test code = BUN) GLOMERULAR FILTRATION 79.0 >60 Unit o f measure: RATE (test code = GFR) mL/mi n/1.73 [id number] Range:Healthy Adults >90 mL/min/1.73 m2 For Chronic Kidney Disease: St age II Mild Decrease in GFR 60-90 St age III Moderate Decrease in GFR 30-59 Stage IV Severe Decre ase in GFR 15- 29 Stage V Kidney Failure <15 CREATININE (test code 0.92 mg/dL 0.55-1.30 N = CREAT) TOTAL PROTEIN (test 7.4 g/dL 6.4-8.2 N code = PROT) ALBUMIN (test code = 4.1 g/dL 3.4-5.0 N ALB) GLOBULIN (test code = 3.3 g/dL 2.2-4.2 N GLOB) ALBUMIN/GLOBULIN RATIO 1.2 0.7-2.0 N (test code = A/G) CALCIUM (test code = 9.2 mg/dL 8.2-10.1 N CA) BILIRUBIN TOTAL (test 0.82 mg/dL 0.2-1.00 N code = BILT) SGOT/AST (test code = 25.0 U/L 15-37 N AST) SGPT/ALT (test code = 31.0 U/L 12-78 N Please note new ALT) normal range. ALKALINE PHOSPHATASE 67 U/L 46-116 N TOTAL (test code = ALKP) CBC W/AUTO [id number] 16:21:00 Test Item Value Reference Range Interpretation Comments WHITE BLOOD CELL (test code = WBC) 4.6 K/mm3 5.7-10.5 L RED BLOOD CELL (test code = RBC) 4.65 M/mm3 4.2-5.4 N HEMOGLOBIN (test code = HGB) 14.9 g/dL 12-16 N HEMATOCRIT (test code = HCT) 42.0 % 37-47 N MEAN CELL VOLUME (test code = MCV) 90 fL 80-98 N MEAN CELL HGB (test code = MCH) 32.0 pg 27-34 N MEAN CELL HGB CONCENTRATION (test 35.5 g/dL 30.8-34.1 H code = MCHC) RED CELL DISTRIBUTION WIDTH (test 13.3 % 11-16 N code = RDW) PLT (test code = PLT) 165 K/mm3 130-400 N MEAN PLATELET VOLUME (test code = 12.0 fL 8.9-12.1 N MPV) NEUTROPHIL % (test code = NT%) 64.3 % 45-70 N LYMPHOCYTE % (test code = LY%) 25.1 % 20-40 N MONOCYTE % (test code = MO%) 7.8 % 3-10 N EOSINOPHIL % (test code = EO%) 1.5 % 1-5 N BASOPHIL % (test code = BA%) 0.9 % 0.0-1.1 N NEUTROPHIL # (test code = NT#) 2.95 K/mm3 2.00-7.50 N LYMPHOCYTE # (test code = LY#) 1.15 K/mm3 1.50-4.00 L MONOCYTE # (test code = MO#) 0.36 K/mm3 0.2-0.8 N EOSINOPHIL # (test code = EO#) 0.07 K/mm3 0.04-0.4 N BASOPHIL # (test code = BA#) 0.04 K/mm3 0.02-0.10 N MANUAL DIFF REQUIRED (test code = NO MANUAL DIFF MDIFF) NUCLEATED RED BLOOD CELL (test 0 % 0-0 N code = NRBC)
--- OUTSIDE RECORDS SUMMARY | 2020-04-07 11:32 | XMS REPORT | Summary of Care ---
:1940 Author Organization [facility] Address [address] [place] [address] Care Team Providers Name Role Phone Pcp, Does Not Have A Primary Care Provider Reason for Visit Reason Comments LAB Encounter Details Date Type Department Care Team Description 03/26/2020 Laboratory Only [facility] Family Carrie Rodriguez PA [address] [place] [address] [place] [phone] Exposure to Medicine - [facility], Adc Fam Pob I SARS-associated [address] [place] [address] coronaviru s ([address] Drive Dx) [place] [phone] Allergies No Known Allergiesdocumented as of this encounter (statuses as of 03/26/2020) Medications Medication Sig Dispensed Refills Start Date End Date Status allopurinoL 300 mg tablet 0 01/10/2020 Active amitriptyline 10 mg tablet 0 02/29/2020 Active budesonide 0.5 mg/2 mL nebulizer 0 020 Active solution carvediloL 12.5 mg tablet 0 01/10/2020 Active losartan-hydrochlorothiazide 50-12.5 0 Active mg per tablet metFORMIN 500 mg tablet 0 01/10/2020 Active documented as of this encounter (statuses as of 03/26/2020) Active Problems Not on filedocumented as of this encounter (statuses as of 03/26/2020) Social History Tobacco Use Types Packs/Day Years Used Date Never Smoker Smokeless Tobacco: Never Used Sex Assigned at Date Recorded Not on file COVID-19 Exposure Response Date Recorded In the last month, have you been in contact with No / Unsure 03/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 documented as of this encounter Last Filed Vital Signs Not on filedocumented in this encounter Nursing Notes Muriel Parks RN - 03/26/2020 2:40 PM CSTForrest Collins is a 80 year old male here for COVID Screening with a Nasopharyngeal Swab All droplet and contact precautions taken with appropriate PPE worn while interacting with patient. ? Goggles ? N95 Mask ? Gloves ? Gown RR 16 Pulse Ox 97% Patient educated on plan of care for visit, swabbing technique, risks and benefits of test and length of time to receive results. Verbal consent obtained to perform test. CDC Fact Sheet for Patients nCoV Diagnostic Panel dated 07/15/2019 and Factsheet What to Do if Sick with COVID 19 06/25/19 provided. Patient swabbed per appropriate nasopharyngeal technique, and patient tolerated well. Patient was discharged from the testing clinic in stable condition. Muriel Parks RN 03/26/2020 2:34 PM documented in this encounter Plan of Treatment Name Type Priority Associated Diagnoses Order S chedule COVID-19 (MOLECULAR LAB Routine Exposure to Expected : 03/26/2020, TESTING SARS-associated Expires: 021 NUCLEIC ACID coronavirus AMPLIFICATION) Health Maintenance Due Date Last Done Comments Depression Screening 1950 DTaP,Tdap,and Td Vaccines (1 - Tdap) 1957 Zoster Recombinant Vaccine (SHINGRIX) (1 of 2) 1988 Medicare Wellness Visit 2003 PNEUMOCOCCAL VACCINES 65+ (1 of 1 - PPSV23) 2003 INFLUENZA VACCINE (#1) 2020 documented as of this encounter Results Not on filedocumented in this encounter Visit Diagnoses Diagnosis Exposure to SARS-associated coronavirus - Primary documented in this encounter Additional Health Concerns Infection Onset Date Last Indicated Resolved Time COVID-19 Rule Out 03/26/2020 03/26/2020 documented as of this encounter Insurance Payer Benefit Plan / Subscriber ID Effective Phone Address T ype Group Dates UNITED UHC MEDICARE [id number] 2019-Prese Medicare Adv HEALTHCARE COMPLETE nt PPO MEDICARE CHOICE ADVANTAGE documented as of this encounter
--- OUTSIDE RECORDS SUMMARY | 2020-04-07 11:32 | XMS REPORT | Summary of Care ---
:1940 Author Organization [facility] Address [address] [place] [address] Care Team Providers Name Role Phone Pcp, Does Not Have A Primary Care Provider Reason for Visit Reason Comments Results Encounter Details Date Type Department Care Team Description 03/29/2020 Telephone [facility] Urgent Arvin webster, Madhu Dye MD Results Care [address] [place] [address] [place] [address] [phone] Allergies No Known Allergiesdocumented as of this encounter (statuses as of 03/29/2020) Medications Medication Sig Dispensed Refills Start Date End Date Status allopurinoL 300 mg tablet 0 01/10/2020 Active amitriptyline 10 mg tablet 0 02/29/2020 Active budesonide 0.5 mg/2 mL nebulizer 0 020 Active solution carvediloL 12.5 mg tablet 0 01/10/2020 Active losartan-hydrochlorothiazide 50-12.5 0 Active mg per tablet metFORMIN 500 mg tablet 0 01/10/2020 Active documented as of this encounter (statuses as of 03/29/2020) Active Problems Not on filedocumented as of this encounter (statuses as of 03/29/2020) Social History Tobacco Use Types Packs/Day Years Used Date Never Smoker Smokeless Tobacco: Never Used Sex Assigned at Date Recorded Not on file COVID-19 Exposure Response Date Recorded In the last month, have you been in contact with No / Unsure 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 documented as of this encounter Last Filed Vital Signs Not on filedocumented in this encounter Miscellaneous Notes Telephone Encounter - Rachel Power RN - 03/29/2020 5:25 PM YUKOForrest Collins is a 80 year old male who tested positive for Covid-19 and is calling for his results. Spoke with patient and his regarding below information, voices understanding. Denies furtherneeds or concerns. Your COVID 19 testing results were positive. At this time, the COVID 19 virus was detected in your sample. If this is the first time you tested positive for COVID 19, we recommend that you remain in self- quarantine along with those in your immediate household until you have been contacted by your [facility]'s health department who will work with you on when you may discontinue self- quarantine. In addition, your company's employee health department may have additional requirements for clearance to work. Please work with your [facility] health department to address those requirements. Please follow the advice you received in your After Visit Summary (AVS), the CDC document on what todo if you are sick with COVID and/or the CDC document on the COVID 19 test you received. Please stayinside and preferably in one room. Avoid close contact with your family and neighbors to prevent further spread. Wear a face mask if in the presence of someone else. Do not share household items such as dishes and toiletries. Be sure to clean your space thoroughly and wash your hands frequently. If you have symptoms, most people feel better within 7-14 days. If your symptoms are worsening and you feel very short of breath and you have difficulty performing basic tasks such as walking to the bathroomor preparing food, we would like you to contact the [facility] at [phone] or toll free to talk with a nurse or, if your symptoms are urgent, go to the nearest Emergency Room. Please wear a face mask and call prior to going to a healthcare facility. The local health department will be contacting you soon to follow up. If you are a [facility] or contract employee or student, please refer to this website for more information [email or web address]. If this is not the first positive result you received, please be advised that it is unclear, at thistime, how long the virus remains detectable in samples. It appears it could be weeks before a samplebecomes negative. The date of your first positive test and your current symptoms will determine whenyou may discontinue quarantine. Please work with the [facility] for instructions. For further guidance on when you can expect to discontinue quarantine and return to work, please visit the CDC website: https://www.cdc.gov/coronavirus/2019-ncov/hcp/nqdmsmblgxc-km-erny-patients.html. [facility] recommends the symptom-based strategy for those who have symptoms and the time-based strategy for those who do not have symptoms. Repeat testing is not routinely recommended for any reason due to the prolonged detection of the virus in samples without evidence of transmission. General guidance includes release from quarantine when the following conditions are met: ? At least 24 hours have passed since recovery defined as resolution of fever without the use of fever-reducing medications and ? Improvement in symptoms (e.g., cough, shortness of breath); and, ? At least 10 days have passed since symptoms first appeared or the first positive test if symptoms have not developed or worsened since testing, at which point, use date symptoms began. ? Continue to wear a face mask until 14 days have passed since your first test or first symptoms appeared. ? If you experience a worsening of symptoms or recover and then redevelop symptoms, please speak with a provider for further evaluation. Those in your household should remain in quarantine for 14 days to allow time for incubation, or, iftesting positive, should follow the above guidelines for discontinuing quarantine. ADRIENNE Odonnell- [facility] Triage Nurse elephone Encounter - [place] - 03/29/2020 4:30 PM CSTForrest Abiel Collins is a 80 year old male whose calling to get his results. Thank you. documented in this encounter Plan of Treatment Health Maintenance Due Date Last Done Comments Depression Screening 1950 DTaP,Tdap,and Td Vaccines (1 - Tdap) 1957 Zoster Recombinant Vaccine (SHINGRIX) (1 of 2) 1988 Medicare Wellness Visit 2003 PNEUMOCOCCAL VACCINES 65+ (1 of 1 - PPSV23) 2003 INFLUENZA VACCINE (#1) 2020 documented as of this encounter Results Not on filedocumented in this encounter Additional Health Concerns Infection Onset Date Last Indicated Resolved Time COVID-19 Confirmed 03/26/2020 03/26/2020 documented as of this encounter Insurance Payer Benefit Plan / Subscriber ID Effective Phone Address T ype Group Dates UNITED UHC MEDICARE [id number] 2019-Prese Medicare Adv HEALTHCARE COMPLETE nt PPO MEDICARE CHOICE ADVANTAGE documented as of this encounter
--- NOTE | 2020-04-07 11:59 | RAD REPORT ---
EXAM DESCRIPTION: CT - Chest For Pe Angio - 04/07/2020 11:52 am CLINICAL HISTORY: Chest pain. Congestion;Cough COMPARISON: No comparisons TECHNIQUE: CT angiogram of the pulmonary arteries was performed with MIP. All CT scans are performed using dose optimization technique as appropriate and may include automated exposure control or mA/KV adjustment according to patient size. FINDINGS: No evidence of pulmonary thromboembolism. No acute aortic finding demonstrated. Extensive alveolar and interstitial lung opacities are present bilaterally suggesting COVID-19 infect ion. No significant pericardial or pleural fluid. No concerning bony finding. IMPRESSION: No evidence of pulmonary thromboembolism. Extensive alveolar and interstitial lung opacities are present compatible with COVID-19 infection.
[2020-04-07 12:00] LABS: Platelet Estimate ADEQ; White Blood Cell Scan OK (OK)
[2020-04-07] MEDS ORDERED: NS KCL 40MEQ 40 MEQ/1,000 ML BAG IV SCH (12:00)
[2020-04-07 12:01] LABS: Blood Morphology Comment NOT SEEN (NOT SEEN); Platelets, Giant FEW
--- NOTE | 2020-04-07 14:06 | P.HP ---
Certification for Inpatient Patient admitted to: Inpatient With expected LOS: >2 Midnights Practitioner: I am a practitioner with admitting privileges, knowledge of patient current condition, hospital course, and medical plan of care. Services: Services provided to patient in accordance with Admission requirements found in Title 42 Section 412.3 of the Code of Federal Regulations Patient History Date of Service: 04/07/20 Reason for admission: Shortness of breath History of Present Illness: 80-year-old gentleman with a history of hypertension and borderline diabetes presented emergency department with a complaint of progressive shortness of breath. He tested positive for COVID 19 2 weeks ago and since then had been experienced malaise and fever. He developed shortness of breath a few days ago which became rapidly progressive. He was hypoxic in the emergency department and patient was requiring 2-4 L of oxygen to maintain SaO2 of 90%. CTA thorax shows no pulmonary embolism demonstrated significant bilateral infiltrates suggestive of COVID pneumonia. Patient also hypokalemia with potassium 2.9. He is admitted for further management. Allergies No Known Allergies Allergy (Verified 12/22/17 14:32) Home Medications: allopurinoL [Zyloprim*] 300 mg PO DAILY 01/08/15 - Past Medical/Surgical History -: Hypertension -: Glucose intolerance - Family History Family History: Reviewed- Non-Contributory - Family History Father -: Heart disease (At advanced age.) - Social History Smoking Status: Never smoker Alcohol use: Yes CD- Drugs: No Review of Systems Other: Except as documented, all other systems reviewed and negative. Physical Examination - Physical Exam General: Alert, In no apparent distress HEENT: Atraumatic, Normocephalic Neck: Supple, JVD not distended Respiratory: Normal air movement, Crackles/rales Cardiovascular: No edema, Regular rate/rhythm, Normal S1 S2 Gastrointestinal: Soft and benign, Non-distended Musculoskeletal: No clubbing, No swelling Integumentary: No rashes, No erythema Neurological: Normal speech, Normal strength at 5/5 x4 extr, Cranial nerves 3-12 intact - Studies Laboratory Data (last 24 hrs) 04/07/20 10:13: PT 12.5, INR 1.06, APTT 24.0 L 04/07/20 10:13: WBC 4.8, Hgb 13.2 L, Hct 37.2 L, Plt Count 296 04/07/20 10:13: Sodium 134 L, Potassium 2.9 L*, BUN 21 H, Creatinine 0.98, Glucose 144 H, Total Bilirubin 0.7, AST 93 H, ALT 103 H, Alkaline Phosphatase 74, Lipase 250 Microbiology Data (last 24 hrs): 04/07/20 10:07 Nasopharnyx Influenza Type A Antigen Screen - Final 04/07/20 10:07 Nasopharnyx Influenza Type B Antigen Screen - Final Assessment and Plan - Problems (Diagnosis) (1) Pneumonia due to COVID-19 virus Current Visit: Yes Status: Acute (2) Acute respiratory failure with hypoxia Current Visit: Yes Status: Acute (3) Hypokalemia Current Visit: Yes Status: Acute (4) Hypertension Current Visit: Yes Status: Acute - Plan Admit to the medical floor. Start IV Solu-Medrol. Start Eliquis for thromboembolism prophylaxis. Titrate oxygen Vitamin supplementation-vitamin C and D Zinc supplementation. Consult to pulmonary-Dr. Womack. - Advance Directives Does patient have a Living Will: No Does patient have a Durable POA for Healthcare: No
--- NOTE | 2020-04-07 14:49 | ER ---
Nurse's Notes [facility] Name: Forrest Collins Age: 80 yrs Sex: Male : 1940 Arrival Date: 04/07/2020 Time: 09:34 Bed 16 Private MD: Gato Farah Diagnosis: Coronavirus infection, [id number];Hypoxia;Hypokalemia Presentation: 04/07 09:38 Chief complaint: Spouse and/or significant other states: his o2 levels are low, he tw2 tested POSITIVE for Covid the Tuesday or Tuesday before , we finally got a pulse ox and today it was 84% and Dr. Haines office said to come to the ER, he does have a COUGH, but no fever x 1 week. Coronavirus screen: cough unrelated to allergies, Client presents with at least one sign or symptom that may indicate coronavirus-19. Standard/surgical mask placed on the client. Provider contacted for isolation considerations. Client reports previous positive COVID test result. Tuesday or Tuesday. Ebola Screen: Patient denies travel to an Ebola-affected area in the 21 days before illness onset. Initial Sepsis Screen: Does the patient meet any 2 criteria? No. Patient's initial sepsis screen is negative. Does the patient have a suspected source of infection? Yes: Productive cough/pneumonia. Risk Assessment: Do you want to hurt yourself or someone else? Patient reports no desire to harm self or others. Onset of symptoms was April 07, 2020. 09:38 Method Of Arrival: Ambulatory tw2 09:38 Acuity: TIAGO 3 tw2 Triage Assessment: 09:56 General: Appears in no apparent distress. well groomed, Behavior is calm, cooperative, tw2 appropriate for age. Pain: Denies pain. Respiratory: Reports cough that is non-productive, Onset: The symptoms/episode began/occurred for a week now, the patient has mild shortness of breath. Historical: - Allergies: 09:58 NKA; tw2 - Home Meds: 09:58 carvedilol 12.5 mg oral tab 1 tab 2 times per day [Active]; tw2 losartan-hydrochlorothiazide 50-12.5 mg oral tab 1 tab once daily [Active]; metformin 500 mg Oral tab 1 tab 2 times per day [Active]; allopurinol 300 mg Oral tab 1 tab once daily [Active]; finasteride 1 mg oral tab 1 tab once daily [Active]; amitriptyline 10 mg Oral tab 1 tab 3 times per day [Active]; - PMHx: 09:58 Hypertension; tw2 - PSHx: 09:58 Hernia repair; Right knee sx; cataract sx; tw2 - Immunization history:: Adult Immunizations. - Social history:: Smoking status: . Screenin:57 Abuse screen: Denies threats or abuse. Nutritional screening: No deficits noted. tw2 Tuberculosis screening: No symptoms or risk factors identified. Fall Risk None identified. Assessment: 10:25 General: Appears in no apparent distress. well groomed, Behavior is calm, cooperative, tw2 appropriate for age. Pain: Denies pain. Neuro: Level of Consciousness is awake, alert, obeys commands, Oriented to person, place, time, situation. Cardiovascular: Rhythm is regular. Respiratory: Reports cough that is non-productive, Airway is patent Respiratory effort is even, unlabored, Respiratory pattern is regular, symmetrical, Breath sounds are diminished bilaterally. GI: Abdomen is round non-distended, Bowel sounds present X 4 quads. : No signs and/or symptoms were reported regarding the genitourinary system. EENT: No signs and/or symptoms were reported regarding the EENT system. Derm: No signs and/or symptoms reported regarding the dermatologic system. Musculoskeletal: Range of motion: intact in all extremities. 11:59 Reassessment: Patient appears in no apparent distress at this time. No changes from tw2 previously documented assessment. Patient and/or family updated on plan of care and expected duration. Pain level reassessed. Patient is alert, oriented x 3, equal unlabored respirations, skin warm/dry/pink. 13:10 Reassessment: Patient appears in no apparent distress at this time. No changes from tw2 previously documented assessment. Patient and/or family updated on plan of care and expected duration. Pain level reassessed. Patient is alert, oriented x 3, equal unlabored respirations, skin warm/dry/pink. Vital Signs: 09:38 BP 140 / 67; Pulse 77; Resp 19; Temp 96.8(O); Pulse Ox 84% on R/A; tw2 09:59 Weight 90.72 kg (R); Height 5 ft. 11 in. (180.34 cm); tw2 10:19 BP 107 / 59; Pulse 74; Resp 22; Pulse Ox 92% on 2 lpm NC; tw2 11:59 BP 146 / 74; Pulse 82; Resp 22; Pulse Ox 92% on 2 lpm NC; tw2 12:00 BP 140 / 74; Pulse 83; Resp 22; Pulse Ox 91% on 2 lpm NC; tw2 13:10 BP 151 / 79; Pulse 82; Resp 24; Pulse Ox 93% on 2 lpm NC; tw2 14:10 BP 137 / 65; Pulse 84; Resp 17; Pulse Ox 94% on 2 lpm NC; tw2 15:00 BP 106 / 64; Pulse 71; Resp 19; Pulse Ox 93% on 2 lpm NC; tw2 16:00 BP 129 / 76; Pulse 81; Resp 22; Pulse Ox 95% on 2 lpm NC; tw2 09:59 Body Mass Index 27.89 (90.72 kg, 180.34 cm) tw2 09:38 pt placed on o2 via 2 L nc at this time, will continue to monitor. tw2 ED Course: 09:34 Patient arrived in ED. ag5 09:34 Gato Farah MD is Private Physician. ag5 09:34 Erika [facility]-C [facility]. kb 09:34 Kamlesh Godwin MD is Attending Physician. kb 09:42 Nimco Aponte, JOANA is Primary Nurse. tw2 09:56 Triage completed. tw2 09:56 Arm band placed on. tw2 09:56 Placed in gown. Bed in low position. pest control applicator on. Pulse ox on. NIBP on. tw2 10:13 Inserted saline lock: 22 gauge in left antecubital area, using aseptic technique. tw2 ,using aseptic technique. by [employer] Blood collected. 10:41 CXR XRAY In Process Unspecified. EDMS 12:09 CT Chest For PE Angio In Process Unspecified. EDMS 12:21 Tushar Gold is Hospitalizing Provider. kb 16:53 No provider procedures requiring assistance completed. Patient admitted, IV remains in tw2 place. 04/08 06:38 Primary Nurse role handed off by Nimco Aponte, RN sg Administered Medications: 04/07 10:16 Drug: Decadron - Dexamethasone 10 mg Route: IVP; Site: left antecubital; tw2 10:56 Follow up: Response: No adverse reaction tw2 12:21 Drug: NS 0.9% with KCl 40 mEq/L 1000 ml {Note: iv fluids available from pharmacy at tw2 this time..} Route: IV; Rate: 125 ml/hr; Site: left antecubital; 16:41 Follow up: IV Status: Infusion continued upon admission tw2 16:41 Follow up: IV Status: Infusion continued upon admission tw2 Outcome: 12:22 Decision to Hospitalize by Provider. kb 16:53 Admitted to ER Hold. Please see [facility] for further documentation. tw2 16:53 Condition: stable 16:53 Instructed on the need for admit. 04/09 16:58 Patient left the ED. em Signatures: Dispatcher [employer] Erika Edmond, JIM-C INDUSTRIAL/ORGANIZATIONAL PSYCHOLOGIST-Anson Osorio RN JOANA Enoch Dietz RN RN Nimco Aponte RN RN tw2 Cosme Diallo 5
--- NOTE | 2020-04-07 14:50 | EDPHYS ---
Physician Documentation [facility] Name: Forrest Collins Age: 80 yrs Sex: Male : 1940 Arrival Date: 04/07/2020 Time: 09:34 Bed 16 Private MD: Gato Farah ED Physician Kamlesh Godwin HPI: 04/07 09:49 This 80 yrs old Male presents to ER via Unassigned with complaints of COVID+, kb Breathing Difficulty. 09:49 The patient or guardian reports cough, that is intermittent, described as moderate. kb Onset: The symptoms/episode began/occurred 2 week(s) ago. Severity of symptoms: At their worst the symptoms were moderate, in the emergency department the symptoms are unchanged. Modifying factors: The symptoms are alleviated by nothing, the symptoms are aggravated by nothing. Associated signs and symptoms: The patient has no apparent associated signs or symptoms. The patient has not experienced similar symptoms in the past. The patient has not recently seen a physician. reports pt tested positive for COVID 2 weeks ago. They were able to get a pulse ox a couple of days ago and noticed pt's oxygen was low. Today oxygen was reading 84% so they called Dr Farah's office and were told to come to the ER. States he has not had fever in a few days. . Historical: - Allergies: : NKA; tw2 - Home Meds: :58 carvedilol 12.5 mg oral tab 1 tab 2 times per day [Active]; tw2 losartan-hydrochlorothiazide 50-12.5 mg oral tab 1 tab once daily [Active]; metformin 500 mg Oral tab 1 tab 2 times per day [Active]; allopurinol 300 mg Oral tab 1 tab once daily [Active]; finasteride 1 mg oral tab 1 tab once daily [Active]; amitriptyline 10 mg Oral tab 1 tab 3 times per day [Active]; - PMHx: :58 Hypertension; tw2 - PSHx: :58 Hernia repair; Right knee sx; cataract sx; tw2 - Immunization history:: Adult Immunizations. - Social history:: Smoking status: . ROS: 09:49 Constitutional: Negative for fever, chills, and weight loss, Cardiovascular: Negative kb for chest pain, palpitations, and edema, Abdomen/GI: Negative for abdominal pain, nausea, vomiting, diarrhea, and constipation, Back: Negative for injury and pain, MS/Extremity: Negative for injury and deformity, Skin: Negative for injury, rash, and discoloration, Neuro: Negative for headache, weakness, numbness, tingling, and seizure. 09:49 Respiratory: Positive for cough, low oxygen. Exam: 09:48 Constitutional: This is a well developed, well nourished patient who is awake, alert, kb and in no acute distress. Head/Face: Normocephalic, atraumatic. Chest/axilla: Normal chest wall appearance and motion. Nontender with no deformity. No lesions are appreciated. Cardiovascular: Regular rate and rhythm with a normal S1 and S2. No gallops, murmurs, or rubs. Normal PMI, no JVD. No pulse deficits. Abdomen/GI: Soft, non-tender, with normal bowel sounds. No distension or tympany. No guarding or rebound. No evidence of tenderness throughout. Skin: Warm, dry with normal turgor. Normal color with no rashes, no lesions, and no evidence of cellulitis. MS/ Extremity: Pulses equal, no cyanosis. Neurovascular intact. Full, normal range of motion. Neuro: Awake and alert, GCS 15, oriented to person, place, time, and situation. Cranial nerves II-XII grossly intact. Motor strength 5/5 in all extremities. Sensory grossly intact. Cerebellar exam normal. Normal gait. 09:48 Respiratory: the patient does not display signs of respiratory distress, Respirations: normal. Vital Signs: 09:38 BP 140 / 67; Pulse 77; Resp 19; Temp 96.8(O); Pulse Ox 84% on R/A; tw2 09:59 Weight 90.72 kg (R); Height 5 ft. 11 in. (180.34 cm); tw2 10:19 BP 107 / 59; Pulse 74; Resp 22; Pulse Ox 92% on 2 lpm NC; tw2 11:59 BP 146 / 74; Pulse 82; Resp 22; Pulse Ox 92% on 2 lpm NC; tw2 12:00 BP 140 / 74; Pulse 83; Resp 22; Pulse Ox 91% on 2 lpm NC; tw2 13:10 BP 151 / 79; Pulse 82; Resp 24; Pulse Ox 93% on 2 lpm NC; tw2 14:10 BP 137 / 65; Pulse 84; Resp 17; Pulse Ox 94% on 2 lpm NC; tw2 15:00 BP 106 / 64; Pulse 71; Resp 19; Pulse Ox 93% on 2 lpm NC; tw2 16:00 BP 129 / 76; Pulse 81; Resp 22; Pulse Ox 95% on 2 lpm NC; tw2 09:59 Body Mass Index 27.89 (90.72 kg, 180.34 cm) tw2 09:38 pt placed on o2 via 2 L nc at this time, will continue to monitor. tw2 MDM: 09:36 Patient medically screened. kb 09:48 Data reviewed: vital signs, nurses notes. Data interpreted: Pulse oximetry: on room air kb is 80 %. Interpretation: hypoxia. Plan: O2 by NC applied. 10:54 Counseling: I had a detailed discussion with the patient and/or guardian regarding: the kb historical points, exam findings, and any diagnostic results supporting the discharge/admit diagnosis, lab results, radiology results, the need for further work-up and treatment in the hospital. 12:22 Physician consultation: Tushar Gold was contacted at 12:22, regarding admission, to the telemetry unit. patient's condition, and will see patient in ED, shortly. 12 09:40 Order name: Blood Culture Adult (2) kb 04/07 09:40 Order name: BMP; Complete Time: 11:07 kb 04/07 09:40 Order name: C-Reactive Protein; Complete Time: 11:07 kb 04/07 09:40 Order name: CBC with Diff; Complete Time: 12:18 kb 04/07 09:40 Order name: D-Dimer; Complete Time: 11:02 kb 04/07 09:40 Order name: Ferritin; Complete Time: 11:07 kb 04/07 09:40 Order name: Flu; Complete Time: 10:50 kb 04/07 09:40 Order name: Lactate; Complete Time: 10:50 kb 04/07 09:40 Order name: LFT's; Complete Time: 11:07 kb 04/07 09:40 Order name: Lipase; Complete Time: 11:07 kb 04/07 09:40 Order name: Procalcitonin; Complete Time: 11:23 kb 04/07 09:40 Order name: PT-INR; Complete Time: 11:02 kb 04/07 09:40 Order name: Ptt, Activated; Complete Time: 11:02 kb 04/07 09:40 Order name: Troponin (emerg Dept Use Only); Complete Time: 11:07 kb 04/07 10:55 Order name: CBC Smear Scan; Complete Time: 12:18 EDMS 04/07 11:28 Order name: SARS-COV-2 RT PCR; Complete Time: 11:35 EDMS 04/07 15:38 Order name: Urine Dipstick--Ancillary (enter results) bd 04/07 15:49 Order name: Urine Dipstick-Ancillary; Complete Time: 15:50 EDMS 04/07 19:17 Order name: C-Reactive Protein; Complete Time: 22:26 EDMS 04/07 19:19 Order name: Procalcitonin; Complete Time: 22:26 EDMS 04/07 23:30 Order name: Potassium; Complete Time: 17:32 EDMS 04/08 07:25 Order name: Urinalysis; Complete Time: 17:32 EDMS 04/08 07:25 Order name: Urine Microscopic Only; Complete Time: 17:32 EDMS 04/08 07:25 Order name: CBC with Automated Diff; Complete Time: 17:32 EDMS 04/08 07:25 Order name: Basic Metabolic Panel; Complete Time: 17:32 EDMS 04/08 07:25 Order name: Phosphorus; Complete Time: 17:32 EDMS 04/08 07:25 Order name: C-Reactive Protein; Complete Time: 17:32 EDMS 04/08 07:25 Order name: Magnesium; Complete Time: 17:32 EDMS 04/09 04:20 Order name: Basic Metabolic Panel EDMS 04/07 09:40 Order name: Droplet/Contact Precautions; Complete Time: 10:48 kb 04/07 09:40 Order name: CXR XRAY; Complete Time: 11:09 kb 04/07 09:40 Order name: EKG; Complete Time: 09:42 kb 04/07 09:40 Order name: Cardiac monitoring; Complete Time: 10:48 kb 04/07 09:40 Order name: EKG - Nurse/Tech; Complete Time: 10:48 kb 04/07 09:40 Order name: IV Start; Complete Time: 10:49 kb 04/07 09:40 Order name: Labs collected and sent; Complete Time: 10:49 kb 04/07 09:40 Order name: O2 Per Protocol; Complete Time: 10:49 kb 04/07 09:40 Order name: O2 Sat Monitoring; Complete Time: 10:49 kb 04/07 09:40 Order name: Urine Dipstick-Ancillary (obtain specimen); Complete Time: 15:45 kb 04/07 11:02 Order name: CT Chest For PE Angio; Complete Time: 12:18 kb 04/09 04:20 Order name: Magnesium EDMS 04/09 04:23 Order name: C-Reactive Protein EDMS 04/09 04:30 Order name: CBC with Automated Diff EDMS Administered Medications: 10:16 Drug: Decadron - Dexamethasone 10 mg Route: IVP; Site: left antecubital; tw2 10:56 Follow up: Response: No adverse reaction tw2 12:21 Drug: NS 0.9% with KCl 40 mEq/L 1000 ml {Note: iv fluids available from pharmacy at tw2 this time..} Route: IV; Rate: 125 ml/hr; Site: left antecubital; 16:41 Follow up: IV Status: Infusion continued upon admission tw2 16:41 Follow up: IV Status: Infusion continued upon admission tw2 Disposition: 04/09 19:45 Co-signature as Attending Physician, Kamlesh Godwin MD. rn Disposition: 04/07/20 12:22 Hospitalization ordered by Tushar Gold for Inpatient Admission. Preliminary diagnosis are Coronavirus infection, unspecified - COVID-19, Hypoxia, Hypokalemia. - Bed requested for [facility] ER HOLD. - Status is Inpatient Admission. em - Condition is Stable. - Problem is new. - Symptoms are unchanged. Signatures: Dispatcher [employer] EDNE Erika Das, MOBILITY MANAGER-C MOBILITY MANAGER-Ckb Jeff Heredia MD MD cha Munoz, Edgar, RN RN em Antonina Hernandez RN RN Kamlesh Godwin MD MD rn Wise, Tara, RN RN tw2 Corrections: (The following items were deleted from the chart) 04/07 10:30 09:42 CORONAVIRUS+MR.LAB.BRZ ordered. [facility] EDMS 14:21 12:22 Hospitalization Ordered by Tushar Gold for Inpatient Admission. Preliminary diagnosis is Coronavirus infection, unspecified - COVID-19; Hypoxia; Hypokalemia. Bed requested for Telemetry/MedSurg (Inpatient). Status is Inpatient Admission. Condition is Stable. Problem is new. Symptoms are unchanged. kb 04/09 16:58 04/07 14:21 04/07/2020 12:22 Hospitalization Ordered by Tushar Gold for Inpatient em Admission. Preliminary diagnosis is Coronavirus infection, unspecified - COVID-19; Hypoxia; Hypokalemia. Bed requested for [facility] ER HOLD. Status is Inpatient Admission. Condition is Stable. Problem is new. Symptoms are unchanged. iw
[2020-04-07 15:49] LABS: Urine Blood NEGATIVE (NEG); Urine Glucose NEGATIVE (NEG); Urine Protein 1+ (NEG); Urine pH 6.5 (5.0-7.0)
[2020-04-07] MEDS ORDERED: ACETAMINOPHEN 500 MG TAB PO PRN (15:51)
[2020-04-07 15:58] VITALS: BMI 27.8
[2020-04-07] MEDS ORDERED: POTASSIUM CL SA 10 MEQ TAB PO ONE ×2 (16:00→16:45)
[2020-04-07] MEDS ORDERED: POTASSIUM CL 40 MEQ in NA CHLORIDE 0.9% 500 ML IV SCH (16:00)
[2020-04-07] MEDS ORDERED: NA CHLORIDE 0.9% 1,000 ML ONE (16:45)
[2020-04-07] MEDS ORDERED: KCL 20 MEQ/100 mL IVPB 40 MEQ/200 ML BAG IV ONE (16:48)
[2020-04-07] MEDS: NA CHLORIDE 0.9% 1,000 ML IV SCH (16:50)
[2020-04-07] MEDS ORDERED: APIXABAN 5 MG TABLET ONE (22:16)
[2020-04-07] MEDS ORDERED: METHYLPREDNISOLONE 40 MG INJ ONE (22:17)
[2020-04-07] MEDS ORDERED: ASCORBIC ACID 500 MG TABLET ONE (22:17)
[2020-04-07] MEDS: METHYLPREDNISOLONE 40 MG INJ IV SCH (22:25)
[2020-04-07] MEDS: ASCORBIC ACID 500 MG TABLET PO SCH (22:25)
[2020-04-07] MEDS: APIXABAN 5 MG TABLET PO SCH (22:25)
[2020-04-08] MEDS ORDERED: POTASSIUM CL SA 10 MEQ TAB PO ONE ×3 (00:37→09:01)
[2020-04-08] MEDS: NA CHLORIDE 0.9% 1,000 ML IV SCH (01:56)
[2020-04-08] MEDS ORDERED: NA CHLORIDE 0.9% 1,000 ML ONE (02:05)
[2020-04-08 05:34] LABS: Absolute Lymphocytes (CBC) 0.4 K/uL (0.7-4.9); Basophils % 0.2 % (0-1.3); Hematocrit 34.2 % (39.6-49.0); Lymphocytes % 10.5 % (15.3-44.8); MPV 7.2 fL (7.6-11.3); RBC Red Blood Cell Count 3.76 M/uL (4.33-5.43)
[2020-04-08 05:35] LABS: BUN Blood Urea Nitrogen 19 mg/dL (7-18); Bicarbonate 28 mmol/L (21-32); Glucose Level 162 mg/dL (74-106); Magnesium 2.1 mg/dL (1.8-2.4); Phosphorus 2.7 mg/dL (2.5-4.9); Potassium 3.7 mmol/L (3.5-5.1); Sodium Level 137 mmol/L (136-145)
[2020-04-08 06:03] LABS: Urine Appearance CLEAR; Urine Bilirubin NEGATIVE (NEG); Urine Blood NEGATIVE (NEG); Urine Color YELLOW; Urine Glucose NEGATIVE (NEG); Urine Protein 1+ (NEG); Urine Specific Gravity 1.025 (1.005-1.030); Urine Urobilinogen 0.2 mg/dL (0.2-1.0); Urine pH 6.5 (5.0-7.0)
[2020-04-08 06:06] LABS: Urine Microscopic Reflex ORDER UMIC
[2020-04-08 06:16] LABS: Urine Bacteria NONE SEEN /HPF (NONE SEEN); Urine RBC <5 /HPF (NONE SEEN)
[2020-04-08] MEDS: POTASSIUM CL SA 10 MEQ TAB PO SCH ×2 (06:28→09:00)
[2020-04-08] MEDS ORDERED: FUROSEMIDE 20 MG/ 2ML VIAL ONE (09:00)
[2020-04-08] MEDS: METHYLPREDNISOLONE 40 MG INJ IV SCH (09:00)
[2020-04-08] MEDS: THIAMINE HCL 100 MG TABLET PO SCH (09:00)
[2020-04-08] MEDS: ASCORBIC ACID 500 MG TABLET PO SCH ×2 (09:00→20:45)
[2020-04-08] MEDS: ZINC SULFATE 220 MG CAP PO SCH (09:00)
[2020-04-08] MEDS: APIXABAN 5 MG TABLET PO SCH ×2 (09:00→20:45)
[2020-04-08] MEDS: VITAMIN D 1000 UNIT TAB PO SCH (09:00)
[2020-04-08] MEDS: FUROSEMIDE 20 MG/ 2ML VIAL IV SCH (09:00)
[2020-04-08] MEDS ORDERED: VITAMIN D 1000 UNIT TAB PO SCH (09:00)
[2020-04-08] MEDS ORDERED: APIXABAN 5 MG TABLET ONE ×2 (09:01→20:45)
[2020-04-08] MEDS ORDERED: THIAMINE HCL 100 MG TABLET ONE (09:01)
[2020-04-08] MEDS ORDERED: ZINC SULFATE 220 MG CAP ONE (09:01)
[2020-04-08] MEDS ORDERED: ASCORBIC ACID 500 MG TABLET ONE ×2 (09:01→20:45)
[2020-04-08] MEDS ORDERED: METHYLPREDNISOLONE 40 MG INJ ONE ×2 (09:02→16:50)
--- NOTE | 2020-04-08 12:49 | P.CNS ---
Date of Consult: 04/08/20 Reason for Consult: Pneumonia due to joseph virus Chief Complaint: Shortness of breath History of Present Illness: Patient is 80 years of age [place] history of hypertension diabetes admitted with progressive shortness of breath he was tested positive for joseph virus 2 weeks ago was with experiencing some fever malaise the scan is very characteristic Allergies No Known Allergies Allergy (Verified 12/22/17 14:32) Home Medications: allopurinoL [Zyloprim*] 300 mg PO DAILY 01/08/15 Amitriptyline [Elavil] 10 mg PO BEDTIME 04/07/20 Carvedilol [Coreg] 1 tab PO BID 04/07/20 Finasteride 1 tab PO DAILY 04/07/20 Losartan/Hydrochlorothiazide [Losartan-Hctz 50-12.5 mg Tab] 50 tab DAILY 04/07/20 Metformin ER [Glucophage ER*] 1 tab PO BID 04/07/20 - Past Medical/Surgical History -: Hypertension -: Glucose intolerance - Family History Father Medical History: Heart disease (At advanced age.) - Social History Alcohol use: Yes CD- Drugs: No Review of Systems General: Weakness Respiratory: Cough, Shortness of Breath Physical Examination Temp Pulse Resp BP Pulse Ox 97.8 F 89 18 161/86 H 92 04/08/20 08:00 04/08/20 09:00 04/08/20 08:00 04/08/20 09:00 04/08/20 08:00 - Problems (1) Pneumonia due to COVID-19 virus Current Visit: Yes Status: Acute Plan: Patient is 80 years of age admitted with the joseph virus pneumonia in CRP is declining in you with steroids and anticoagulation he is currently on nasal cannula oxygen continue to monitor for 1 more day possible discharge tomorrow if he does not progress on steroids laboratory data all reviewed I have also added low-dose Lasix
[2020-04-08] MEDS: LOSARTAN POTASSIUM 50 MG TABLET PO SCH (12:51)
[2020-04-08] MEDS: METHYLPREDNISOLONE 125 MG INJ IV SCH (17:00)
--- NOTE | 2020-04-08 17:22 | P.PN ---
Subjective Date of Service: 04/08/20 Chief Complaint: Shortness of breath Subjective: Improving (feeling better this morning, however desaturated to 80% on 4LNC while standing up at bedside) Review of Systems 10-point ROS is otherwise unremarkable Physical Examination - Vital Signs Temperature: 97.8 F Blood Pressure: 144/73 Pulse: 64 Respirations: 17 Pulse Ox (%): 93 - Physical Exam General: Alert, In no apparent distress HEENT: Sclerae nonicteric Respiratory: Other (slightly labored respirations on 4 LNC) Cardiovascular: No edema, Regular rate/rhythm Gastrointestinal: Soft and benign, No tenderness Musculoskeletal: No tenderness Integumentary: No rashes Neurological: Normal speech, Normal affect Assessment & Plan Physician Review Additional Text: Acute respiratory failure with Hypoxia due to Pneumonia due to COVID-19 virus Hypokalemia HTN continue IV Solumedrol, eliquis for VTE prophylaxis continue Vit C/D, zinc titrate oxygen as needed consulted pulm - appreciate assistance desaturated to 80% on 4LNC trend CRP Dispo: anticipate dc home in 24-48 hrs, needs to be stable on 3-4 LNC Time Spent Managing Pts Care (In Minutes): 35
[2020-04-08] MEDS ORDERED: ATORVASTATIN 20 MG TAB ONE (20:45)
[2020-04-08] MEDS: carvediloL 12.5 MG TAB PO SCH (20:45)
[2020-04-08] MEDS ORDERED: AMITRIPTYLINE 10 MG TAB PO SCH (21:00)
[2020-04-08] MEDS ORDERED: METFORMIN ER 500 MG TAB PO SCH (21:00)
[2020-04-08] MEDS ORDERED: MELATONIN 3 MG TABLET PO SCH (21:00)
[2020-04-08] MEDS ORDERED: ATORVASTATIN 20 MG TAB PO SCH (21:00)
[2020-04-09] MEDS ORDERED: METHYLPREDNISOLONE 40 MG INJ ONE ×2 (00:52→08:44)
[2020-04-09] MEDS: METHYLPREDNISOLONE 125 MG INJ IV SCH ×3 (01:25→16:57)
[2020-04-09 04:07] LABS: Absolute Lymphocytes (CBC) 0.4 K/uL (0.7-4.9); Basophils % 0.1 % (0-1.3); Hematocrit 37.1 % (39.6-49.0); Lymphocytes % 5.4 % (15.3-44.8); MPV 7.1 fL (7.6-11.3)
[2020-04-09 04:20] LABS: Potassium 3.6 mmol/L (3.5-5.1)
[2020-04-09] MEDS ORDERED: POTASSIUM CL SA 10 MEQ TAB PO ONE ×3 (05:36→08:44)
[2020-04-09] MEDS ORDERED: ZINC SULFATE 220 MG CAP ONE (08:43)
[2020-04-09] MEDS ORDERED: carvediloL 6.25 MG TAB ONE (08:43)
[2020-04-09] MEDS ORDERED: VITAMIN D 1000 UNIT TAB ONE (08:43)
[2020-04-09] MEDS ORDERED: METFORMIN HCL 500 MG TAB ONE (08:43)
[2020-04-09] MEDS ORDERED: FUROSEMIDE 20 MG/ 2ML VIAL ONE (08:43)
[2020-04-09] MEDS ORDERED: ASCORBIC ACID 500 MG TABLET ONE (08:44)
[2020-04-09] MEDS ORDERED: METFORMIN ER 500 MG TAB PO SCH (09:00)
[2020-04-09] MEDS: LOSARTAN POTASSIUM 50 MG TABLET PO SCH (09:00)
[2020-04-09] MEDS: FUROSEMIDE 20 MG/ 2ML VIAL IV SCH (09:00)
[2020-04-09] MEDS: VITAMIN D 1000 UNIT TAB PO SCH (09:00)
[2020-04-09] MEDS: APIXABAN 5 MG TABLET PO SCH (09:00)
[2020-04-09] MEDS: carvediloL 12.5 MG TAB PO SCH (09:00)
[2020-04-09] MEDS: ASCORBIC ACID 500 MG TABLET PO SCH (09:00)
[2020-04-09] MEDS: ZINC SULFATE 220 MG CAP PO SCH (09:00)
[2020-04-09] MEDS ORDERED: allopurinoL 300 MG TAB PO SCH (09:00)
[2020-04-09] MEDS ORDERED: SITAGLIPTIN PHOS 100 MG TAB PO SCH (09:00)
[2020-04-09] MEDS: THIAMINE HCL 100 MG TABLET PO SCH (09:00)
[2020-04-09] MEDS: POTASSIUM CL SA 10 MEQ TAB PO SCH (09:00)
[2020-04-09 12:11] VITALS: BP 144/69; TEMP 97.6; O2SAT 93
--- NOTE | 2020-04-09 12:31 | P.PN ---
Subjective Date of Service: 04/09/20 Chief Complaint: Respiratory failure from joseph virus Subjective: Improving (Patient is doing much better and to manage on 4 L of FiO2) Patient is doing much better feeling better little short of breath no cough Review of Systems General: Weakness Respiratory: Shortness of Breath Physical Examination - Vital Signs Temperature: 97.6 F Blood Pressure: 144/69 Pulse: 63 Respirations: 20 Pulse Ox (%): 93 - Physical Exam General: Alert, In no apparent distress, Oriented x3, Cooperative Neck: Supple Respiratory: Clear to auscultation bilaterally Cardiovascular: No edema, Normal S1 S2 Assessment & Plan - Problems (Diagnosis) (1) Pneumonia due to COVID-19 virus Current Visit: Yes Status: Acute Plan: Patient is with respiratory failure from joseph virus is currently doing much better to discharge home on oxygen 4 L a min labs reviewed CRP is declined continue with steroids follow-up with me next week
[2020-04-09] MEDS ORDERED: FAMOTIDINE 20 MG TAB PO ONE (15:00)
[2020-04-09] MEDS ORDERED: FAMOTIDINE 20 MG TAB ONE (15:26)
--- NOTE | 2020-04-09 16:00 | P.DS ---
Admission Date: 04/07/20 Discharge Date: 04/09/20 Disposition: ROUTINE DISCHARGE Discharge Condition: FAIR Reason for Admission: Respiratory failure from joseph virus Consultations: Pulm - Dr. Womack Procedures: CXR (04/07): Extensive bilateral pulmonary opacities are present most compatible with viral pneumonia CTA Chest (04/07): No evidence of pulmonary thromboembolism. Extensive alveolar and interstitial lung opacities are present compatible with COVID-19 infection. Problem List: Acute respiratory failure with hypoxia due to COVID-19 pneumonia Hypokalemia HTN Brief History of Present Illness: 80yo male, PMH: HTN, borderline diabetes, presented to ED due to progressive SOB and found to have COVID-19 pneumonia. He tested positive for COVID 19 2 weeks ago and since then had been experienced malaise and fever. He developed shortness of breath a few days ago which became rapidly progressive. He was hypoxic in the emergency department and patient was requiring 2-4 L of oxygen to maintain SaO2 of 90%. CTA thorax shows no pulmonary embolism demonstrated significant bilateral infiltrates suggestive of COVID pneumonia. Patient also hypokalemia with potassium 2.9. Hospital Course: He was treated with IV solumedrol 80 mg q8hr with improvement of his CRP (166 -> 71) and symptoms. Pulmonology was consulted and felt patient was appropriate to be discharged home safely. On day of discharge patient was requiring 3-4L NC with SpO2 ~90-92%. He reported feeling much better and wanting to be discharged home. He was discharged with 2 week tapering course of prednisone, home oxygen, and eliquis. He is to f/u with Dr. Womack in the next ~1 week. Vital Signs/Physical Exam: Temp Pulse Resp BP Pulse Ox 97.6 F 63 20 144/69 H 93 04/09/20 12:31 04/09/20 12:31 04/09/20 12:31 04/09/20 12:31 04/09/20 12:31 General: Alert, In no apparent distress HEENT: Sclerae nonicteric Respiratory: Other (non-labored on 3.5L NC while sitting in bed) Cardiovascular: No edema, Regular rate/rhythm Gastrointestinal: Soft and benign, No tenderness Musculoskeletal: No tenderness Integumentary: No rashes Neurological: Normal speech, Normal affect Laboratory Data at Discharge: WBC 7.7 K/uL (4.3-10.9) D 04/09/20 03:33 Hgb 13.2 g/dL (13.6-17.9) L 04/09/20 03:33 Hct 37.1 % (39.6-49.0) L 04/09/20 03:33 Plt Count 391 K/uL (152-406) D 04/09/20 03:33 PT 12.5 SECONDS (9.5-12.5) 04/07/20 10:13 INR 1.06 04/07/20 10:13 APTT 24.0 SECONDS (24.3-36.9) L 04/07/20 10:13 Sodium 141 mmol/L (136-145) 04/09/20 03:33 Potassium 3.6 mmol/L (3.5-5.1) 04/09/20 03:33 BUN 27 mg/dL (7-18) H 04/09/20 03:33 Creatinine 0.91 mg/dL (0.55-1.3) 04/09/20 03:33 Glucose 175 mg/dL (74-106) H 04/09/20 03:33 Phosphorus 2.7 mg/dL (2.5-4.9) 04/08/20 03:15 Magnesium 2.0 mg/dL (1.8-2.4) 04/09/20 03:33 Total Bilirubin 0.7 mg/dL (0.2-1.0) 04/07/20 10:13 AST 93 U/L (15-37) H 04/07/20 10:13 ALT 103 U/L (12-78) H 04/07/20 10:13 Alkaline Phosphatase 74 U/L (45-117) 04/07/20 10:13 Lipase 250 U/L (73-393) 04/07/20 10:13 Home Medications: RX: allopurinoL [Zyloprim*] 300 mg PO DAILY 01/08/15 RX: Amitriptyline [Elavil*] 10 mg PO BEDTIME 04/07/20 RX: Carvedilol [Coreg] 1 tab PO BID 04/07/20 RX: Finasteride 1 tab PO DAILY 04/07/20 RX: Losartan/Hydrochlorothiazide [Losartan-Hctz 50-12.5 mg Tab] 50 tab DAILY 04/07/20 RX: Metformin ER [Glucophage ER*] 1 tab PO BID 04/07/20 RX: Apixaban [Eliquis] 5 mg PO BID 30 Days #60 tablet 04/09/20 predniSONE [Deltasone] 20 mg PO SEECOM 14 Days #21 tab 04/09/20 New Medications: RX: Apixaban [Eliquis] 5 mg PO BID 30 Days #60 tablet predniSONE [Deltasone] 20 mg PO SEECOM 14 Days #21 tab Patient Discharge Instructions: follow up with Dr. Womack (Pulmonology) in 1-2 weeks - call his office to schedule appointment. New medications on discharge: prednisone for COVID-19 and Eliquis (Abixaban) - a blood thinner to help protect from clots while having COVID-19. Diet: Regular Activity: Ad brigitte Followup: Andi Womack MD [ACTIVE - CAN ADMIT] - Gato Farah MD [Primary Care Provider] - Time spent managing pt's care (in minutes): 40
== END 2020-04-09 16:50 | disposition home or self-care (01) | DRG 177 ==
LOC: ER 09:32 → ERHOLD 13:44
PROVIDERS: ADMIT Internal Medicine; ATTEND Hospitalist
DX: U07.1 COVID-19 (principal); J12.89 Other viral pneumonia; J96.01 Acute respiratory failure with hypoxia; I10 Essential (primary) hypertension; E11.9 Type 2 diabetes mellitus without complications; E87.6 Hypokalemia; Z79.899 Other long term (current) drug therapy; Z79.84 Long term (current) use of oral hypoglycemic drugs; Z79.01 Long term (current) use of anticoagulants; Z79.52 Long term (current) use of systemic steroids
CPT/HCPCS: 36415; 71045; 71275; 80048; 80076; 81003; 81015; 82728; 83605; 83690; 83735; 84100; 84132; 84145; 84484; 85025; 85379; 85610; 85730; 86140; 87040; 87804; 93005; 94760; 96361; 96374; 99285; J1100; J1940; J2920; J3480; J7030; J7040; Q9967; U0003